=== PATIENT | male | born 1965 | race Caucasian/White ===

== ENCOUNTER 2021-10-21 21:03 | Emergency (ER) | payer MEDICARE, OTHER ==
[2021-10-21] MEDS ORDERED: Zofran 4 MG/2 ML VIAL IV ONE (21:36)
[2021-10-21] MEDS ORDERED: Sodium Chloride 0.9% 1000 ML 1,000 ML IV STA (21:36)
[2021-10-21] MEDS ORDERED: Protonix 40MG Tablet PO ONE (21:36)
[2021-10-21] MEDS ORDERED: PROTONIX 40 MG IV IV ONE ×2 (21:41→21:44)
[2021-10-21] MEDS ORDERED: Zofran 4 MG/2 ML VIAL ONE (21:41)
[2021-10-21] MEDS ORDERED: Sodium Chloride 0.9% 1000 ML 1,000 ML ONE (21:41)
[2021-10-21] MEDS ORDERED: Hydromorphone 1 mg/ml Injection IV ONE (21:52)
[2021-10-21 22:08] LABS: Basophil (Absolute #) 0.03 x10^3/uL (0-0.4); Eosinophil % 0.5 % (0.00-5.0); Eosinophil (Absolute #) 0.04 x10^3/uL (0-0.5); Hematocrit 46.3 % (42-50); Lymphocyte (Absolute #) 1.75 x10^3/uL (1.0-4.6); Lymphocytes % 20.6 % (24.0-44.0); Mean Cell Volume 80.4 fL (78-100); Mean Corpuscular Hemoglobin 27.8 pg (26-32); Mean Corpuscular Hgb Concent. 34.6 g/dL (32-36); Monocyte (Absolute #) 0.55 x10^3/uL (0.0-1.3); Monocytes % 6.5 % (0.0-12.0); Neutrophil % 71.8 % (36.0-66.0); Platelet Count 226 x10^3/uL (150-450); Red Blood Count 5.76 x10^6/uL (4.1-5.6); Red Cell Distribution Width 12.4 % (11.5-14.0); White Blood Count 8.5 x10^3/uL (4.0-10.5)
[2021-10-21 22:28] LABS: ALBUMIN 3.8 g/dL (3.5-5.0); ALKALINE PHOSPHATASE 138 U/L (38-126); AMYLASE 52 U/L (30-110); ANION GAP 13.7 MEQ/L (5-15); BLOOD UREA NITROGEN 13 mg/dL (9-20); CHLORIDE 95 mmol/L (98-107); Carbon Dioxide 26 mmol/L (22-30); Creatinine 1 0.57 mg/dL (0.66-1.25); EST GLOMERULAR FILTRATION RATE > 60.0 ML/MIN; Glucose 372 mg/dL (74-106); LIPASE 32 U/L (23-300); SGOT/AST 21 U/L (17-59); SGPT/ALT 26 U/L (0-50); SODIUM 130 mmol/L (137-145)
[2021-10-21 22:29] LABS: INR 1.03 (0.8-3.0); PROTIME 10.9 SECONDS (9.4-12.5)
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
[2021-10-21 22:56] LABS: INFLUENZA A NEGATIVE (NEGATIVE); INFLUENZA B NEGATIVE (NEGATIVE); RESPIRATORY SYNCTIAL VIRUS NEGATIVE (Negative); SARS-CoV-2 Xpert Express NEGATIVE (NEGATIVE)
[2021-10-21] MEDS ORDERED: Hydromorphone 1 mg/ml Injection ONE (23:27)
[2021-10-21 23:30] LABS: Appearance CLEAR (CLEAR)
[2021-10-21 23:32] LABS: Bilirubin NEGATIVE (NEGATIVE); Dipstick done @ ? MAIN LAB; Glucose >=1000 mg/dL (NEGATIVE); Ketones SMALL-15 (NEGATIVE); Nitrite NEGATIVE (NEGATIVE); Ph 5.5 (5-6); Protein,Urine Dip >=300 (Negative); RBC TRACE-LYSED Ery/ul (0-5); Urobilinogen 0.2 mg/dL (0-1)
[2021-10-21 23:37] LABS: Mucus SLIGHT /HPF (NEGATIVE); Urine Cultured Indicated? NO
[2021-10-21 23:51] LABS: Barbiturate,Urine NEGATIVE (NEGATIVE); Benzodiazepine,Urine NEGATIVE (NEGATIVE); Cocaine,Urine NEGATIVE (NEGATIVE); Methadone,Urine NEGATIVE (NEGATIVE); Opiate,Urine NEGATIVE (NEGATIVE); PCP,Urine NEGATIVE (NEGATIVE); THC,Urine NEGATIVE (NEGATIVE)
[2021-10-22] MEDS ORDERED: HUMULIN R IV ONE (00:05)
[2021-10-22 00:17] LABS: Amphetamine,Urine POSITIVE (NEGATIVE)
[2021-10-22 00:54] LABS: ACETAMINOPHEN < 10 ug/ml (10-30); ETHYL ALCOHOL < 10 mg/dL (0-10); SALICYLATE < 1.0 mg/dL (2-20)
[2021-10-22] MEDS ORDERED: HUMULIN R ONE (01:05)
[2021-10-22] MEDS ORDERED: CLONIDINE 0.1 MG TABLET PO ONE ×2 (01:34→05:06)
[2021-10-22] MEDS ORDERED: CLONIDINE 0.1 MG TABLET ONE ×2 (01:41→05:11)
[2021-10-22] MEDS ORDERED: NORVASC 5 MG PO ONE (05:06)
[2021-10-22] MEDS ORDERED: NORVASC 5 MG ONE (05:11)
--- NOTE | 2021-10-22 07:40 | XRAY ---
Indication: Confusion. Left-sided migraine headache. Multiple contiguous axial images obtained through the head without contrast. Comparison: None Age-appropriate global atrophy, moderate periventricular degenerative micro-ischemia bilaterally, subcentimeter foci old infarct rights right periventricular white matter, and remote lacunar infarcts right basal ganglia/right caudate head. No acute intracranial hemorrhage, abnormal extra-axial fluid collection, or mass effect. Fourth ventricle is midline without hydrocephalus. Bony calvarium intact. Visualized paranasal sinuses and mastoid air cells are clear. A few incidental left facial subcutaneous metallic densities presumed iatrogenic. 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 Comment: Preliminary interpretation made by [facility]. No critical discrepancy.
--- NOTE | 2021-10-22 07:42 | XRAY ---
Indication: Pain, nausea, and vomiting. Multiple contiguous axial images obtained through the abdomen and pelvis without contrast. Comparison: None Lung bases are clear. Heart not enlarged. Small hiatal hernia. Previous gastric bypass surgery. Noncontrasted stomach and bowel loops appear nonobstructed with normal appendix. Mild diffuse scattered colonic fecal debris throughout. Previous cholecystectomy. No free fluid/air. Incidental 2.5 cm right adrenal adenoma. Remaining liver, pancreas, spleen, adrenal glands, kidneys, ureters, and bladder are unremarkable for noncontrast exam. Mild scattered aortoiliac calcifications without AAA. Osseous structures intact with mild/moderate degenerative changes throughout the thoracolumbar spine and both hips. No ventral or inguinal hernias. Impression: 1. Mild diffuse fecal stasis, small hiatal hernia, and right adrenal adenoma. 2. Remaining CT abdomen/pelvis without contrast exam is negative. Comment: Preliminary interpretation made by [facility]. No critical discrepancy.
--- NOTE | 2021-10-22 07:44 | XRAY ---
Indication: Pain and confusion. No known injury. Comparison: None 5 view cervical spine demonstrates normal alignment with minimal/mild multilevel degenerative changes greatest at C5-C6 with bilateral C4-C6 foraminal narrowing due to uncovertebral spurring. Mild right carotid calcifications. Patient is edentulous. No other bony, articular, or soft tissue abnormalities.
--- NOTE | 2021-10-22 07:44 | XRAY ---
Indication: Pain, nausea, and vomiting. Comparison: None Portable chest demonstrates normal heart and lungs with incidental mediastinal/hilar calcified nodes. Bony thorax intact with mild degenerative changes.
[2021-10-22] MEDS ORDERED: Hydromorphone 1 mg/ml Injection IV ONE (08:43)
[2021-10-22] MEDS ORDERED: Hydromorphone 1 mg/ml Injection ONE (08:47)
[2021-10-22 09:09] VITALS: BP 141/73; PULSE 97; O2SAT 99
== END 2021-10-22 09:42 | disposition short-term general hospital (02) ==
LOC: ED 21:03
DX: G93.40 Encephalopathy, unspecified (principal); E11.65 Type 2 diabetes mellitus with hyperglycemia; R51.9 Headache, unspecified; R11.2 Nausea with vomiting, unspecified; R19.7 Diarrhea, unspecified; R10.84 Generalized abdominal pain; I10 Essential (primary) hypertension; Z72.0 Tobacco use; Z28.310 Unvaccinated for COVID-19; Z91.14 Patient's other noncompliance with medication regimen; Z20.828 Contact with and (suspected) exposure to other viral communicable diseases
CPT/HCPCS: 0241U; 36000; 36415; 70450; 71045; 72050; 74176; 80053; 80307; 81015; 82150; 82947; 83605; 83690; 84484; 85025; 85610; 85652; 87040; 93005; 96360; 96374; 96375; 96376; 99285; G0480; J1170; J1815; J2405; A9270-GY

== ENCOUNTER 2022-08-27 14:47 | Emergency (ER) | payer OTHER, MEDICARE ==
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
--- NOTE | 2022-08-27 16:55 | XRAY ---
CLINICAL HISTORY:fall, left side pain COMPARISON:None; TECHNIQUES:Multiple axial sections of CT of the pelvis were acquired without IV contrast administration. In addition, coronal and sagittal views were also acquired. CTDI: 23.38 mGy, DLP: 682.44 mGy*; FINDINGS: No acute fracture or listhesis is seen. Lumbar spondylosis is seen in the form of osteophytes, vacuum disc phenomenon and facet joint hypertrophy. Disc herniation is seen at the L4-L5 and L5-S1 levels indenting the thecal sac. Bilateral hip osteoarthritic changes are seen in the form of joint space reduction, osteophytes and a few tiny subcortical cysts in the bilateral acetabular margins. The osteophytes along the right anterior and bilateral posterior acetabular margins are broken. Uncomplicated descending colon diverticulosis is seen. The sacrum and coccyx are normal. Coccygeal alignment is normal. The prostate appears enlarged, to be correlated with an ultrasound of the bladder and prostate. IMPRESSION: 1-No acute fracture or listhesis is seen. 2-Lumbar spondylosis. 3-Disc herniation at the L4-L5 and L5-S1 levels. 4-Bilateral hip osteoarthritic changes. 5-Uncomplicated descending colon diverticulosis. 6-The prostate appears enlarged, to be correlated with an ultrasound of the bladder and prostate. Electronically Signed by: Marie Watts MD. (08/27/2022 15:47:22 [employer])
[2022-08-27] MEDS ORDERED: Rocephin 1000 MG INJ IM ONE (17:07)
[2022-08-27] MEDS ORDERED: NORCO 7.5/325 MG TAB PO PRN (17:08)
[2022-08-27] MEDS ORDERED: Rocephin 1000 MG INJ ONE (17:28)
[2022-08-27] MEDS ORDERED: XYLOCAINE 1% HCL 20 ML MDV ONE (17:28)
[2022-08-27 17:49] VITALS: BP 158/97; PULSE 96
[2022-08-27 17:50] VITALS: O2SAT 96
[2022-08-27] MEDS ORDERED: HYDROCODONE-ACETAMIN 10-325 MG PO PRN (17:56)
== END 2022-08-27 18:09 | disposition home or self-care (01) ==
LOC: ED 14:47
DX: S70.02XA Contusion of left hip, initial encounter (principal); W19.XXXA Unspecified fall, initial encounter; L03.032 Cellulitis of left toe; I10 Essential (primary) hypertension; E11.9 Type 2 diabetes mellitus without complications; Z79.899 Other long term (current) drug therapy; Z28.310 Unvaccinated for COVID-19; Z72.0 Tobacco use
CPT/HCPCS: 72192; 82947; 96372; 99283; J0696; A9270-GY

== ENCOUNTER 2022-10-04 22:34 | Inpatient (IN) | payer OTHER, MEDICARE ==
[2022-10-04] MEDS ORDERED: Sodium Chloride 0.9% 1000 ML 1,000 ML IV STA (23:03)
[2022-10-04] MEDS ORDERED: PIPERACILLIN/TAZOBACTAM 3.375 GM in Sodium Chloride 100ML MINI-BAG PLUS 100 ML IV ONE (23:04)
[2022-10-04] MEDS ORDERED: VANCOMYCIN 2 GRAM/400 ML BAG 2 GM/400 ML PIGGYBACK IV ONE ×2 (23:05→23:46)
[2022-10-04] MEDS ORDERED: Sodium Chloride 0.9% 1000 ML 1,000 ML ONE (23:32)
[2022-10-04] MEDS ORDERED: PIPERACILLIN/TAZOBACTAM IV ONE (23:32)
[2022-10-04] MEDS ORDERED: Sodium Chloride 100ML MINI-BAG PLUS 100 ML IV ONE (23:33)
[2022-10-04 23:39] LABS: Absolute Neutrophil Ct (ANC) 5.13 x10^3/uL (1.4-6.9); BASOPHIL % 0.5 % (0.0-0.4); Basophil (Absolute #) 0.04 x10^3/uL (0-0.4); Eosinophil % 1.4 % (0.00-5.0); Eosinophil (Absolute #) 0.11 x10^3/uL (0-0.5); Hematocrit 42.4 % (42-50); Hemoglobin 14.1 g/dL (12.5-18.0); IMMATURE GRAN # 0.04 x10^3u/L (0.00-0.03); IMMATURE GRAN % 0.5 % (0.00-0.4); Lymphocyte (Absolute #) 1.97 x10^3/uL (1.0-4.6); Lymphocytes % 25.4 % (24.0-44.0); Mean Cell Volume 79.7 fL (78-100); Mean Corpuscular Hemoglobin 26.5 pg (26-32); Mean Corpuscular Hgb Concent. 33.3 g/dL (32-36); Mean Platelet Volume 10.1 fL (7.5-11.0); Monocyte (Absolute #) 0.47 x10^3/uL (0.0-1.3); Monocytes % 6.1 % (0.0-12.0); Neutrophil % 66.1 % (36.0-66.0); Platelet Count 252 x10^3/uL (150-450); Red Blood Count 5.32 x10^6/uL (4.1-5.6); Red Cell Distribution Width 13.2 % (11.5-14.0); White Blood Count 7.8 x10^3/uL (4.0-10.5)
[2022-10-04 23:52] LABS: ALKALINE PHOSPHATASE 220 U/L (38-126); ANION GAP 11.5 MEQ/L (5-15); BLOOD UREA NITROGEN 22 mg/dL (9-20); CHLORIDE 95 mmol/L (98-107); Calcium 8.4 mg/dL (8.4-10.2); Carbon Dioxide 28 mmol/L (22-30); Creatinine 1 0.52 mg/dL (0.66-1.25); EST GLOMERULAR FILTRATION RATE > 60.0 ML/MIN; Potassium 4.3 mmol/L (3.5-5.1); SGOT/AST 25 U/L (17-59); SGPT/ALT 30 U/L (0-50); SODIUM 131 mmol/L (137-145); Total Protein 6.6 g/dL (6.3-8.2)
[2022-10-04 23:59] LABS: Glucose 559 mg/dL (74-106)
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
[2022-10-05 00:33] LABS: VBG BASE EXCESS 4.2 (-2.0-2.0); VBG HCO3- 28.4 meq/L (22-28); VBG HEMOGLOBIN 14.8; VBG O2 SATURATION 98.1 (95-100); VBG POTASSIUM 4.5 (3.5-5.1); VBG pH 7.46 (7.32-7.42)
[2022-10-05 00:34] LABS: VBG CARBOXYHEMOGLOBIN 9.6 % T HGB (0.0-6.9)
[2022-10-05] MEDS ORDERED: TRANDATE 20 MG/4 ML SYRINGE IV ONE ×2 (00:40→00:52)
[2022-10-05] MEDS ORDERED: MORPHINE SULFATE 4 MG INJ IV ONE (00:46)
[2022-10-05] MEDS ORDERED: HUMULIN R IV ONE (00:46)
[2022-10-05] MEDS ORDERED: Zofran 4 MG/2 ML VIAL IV ONE (00:46)
[2022-10-05] MEDS ORDERED: Zofran 4 MG/2 ML VIAL ONE (00:50)
[2022-10-05] MEDS ORDERED: HUMULIN R ONE (00:51)
[2022-10-05] MEDS ORDERED: MORPHINE SULFATE 4 MG INJ ONE (00:51)
[2022-10-05] MEDS: Sodium Chloride 0.9% 1000 ML 1,000 ML IV SCH ×4 (00:54→23:03)
[2022-10-05] MEDS ORDERED: DUONEB 0.5-3 MG/3 ml Neb IH PRN (02:27)
[2022-10-05] MEDS ORDERED: VANCOCIN INJECTION*** 1 GM in Sodium Chloride 0.9% 250 ML 250 ML IV SCH (02:27)
[2022-10-05] MEDS ORDERED: Zofran 4 MG/2 ML VIAL IV PRN (02:27)
[2022-10-05 04:51] LABS: Absolute Neutrophil Ct (ANC) 4.32 x10^3/uL (1.4-6.9); BASOPHIL % 0.4 % (0.0-0.4); Basophil (Absolute #) 0.03 x10^3/uL (0-0.4); Eosinophil % 1.9 % (0.00-5.0); Eosinophil (Absolute #) 0.14 x10^3/uL (0-0.5); Hematocrit 38.3 % (42-50); Hemoglobin 12.7 g/dL (12.5-18.0); IMMATURE GRAN # 0.03 x10^3u/L (0.00-0.03); IMMATURE GRAN % 0.4 % (0.00-0.4); Lymphocyte (Absolute #) 2.15 x10^3/uL (1.0-4.6); Lymphocytes % 29.9 % (24.0-44.0); Mean Cell Volume 79.1 fL (78-100); Mean Corpuscular Hemoglobin 26.2 pg (26-32); Mean Corpuscular Hgb Concent. 33.2 g/dL (32-36); Monocyte (Absolute #) 0.52 x10^3/uL (0.0-1.3); Monocytes % 7.2 % (0.0-12.0); Neutrophil % 60.2 % (36.0-66.0); Platelet Count 237 x10^3/uL (150-450); Red Blood Count 4.84 x10^6/uL (4.1-5.6); Red Cell Distribution Width 13.2 % (11.5-14.0); White Blood Count 7.2 x10^3/uL (4.0-10.5)
[2022-10-05 05:06] LABS: ALBUMIN 2.5 g/dL (3.5-5.0); ALKALINE PHOSPHATASE 194 U/L (38-126); ANION GAP 6.6 MEQ/L (5-15); BLOOD UREA NITROGEN 18 mg/dL (9-20); CHLORIDE 101 mmol/L (98-107); Calcium 7.9 mg/dL (8.4-10.2); Carbon Dioxide 31 mmol/L (22-30); EST GLOMERULAR FILTRATION RATE > 60.0 ML/MIN; Glucose 276 mg/dL (74-106); Potassium 3.8 mmol/L (3.5-5.1); SGOT/AST 44 U/L (17-59); SGPT/ALT 30 U/L (0-50); SODIUM 135 mmol/L (137-145); Total Protein 5.6 g/dL (6.3-8.2)
[2022-10-05] MEDS ORDERED: Sodium Chloride 100ML MINI-BAG PLUS 100 ML IV ONE (05:10)
[2022-10-05] MEDS ORDERED: PIPERACILLIN/TAZOBACTAM IV ONE (05:10)
[2022-10-05] MEDS: PIPERACILLIN/TAZOBACTAM 3.375 GM in Sodium Chloride 100ML MINI-BAG PLUS 100 ML IV SCH ×4 (06:05→23:02)
[2022-10-05 08:41] LABS: ALKALINE PHOSPHATASE 180 U/L (38-126); CK-Creatinine Phosphokinase 59 U/L (55-170)
[2022-10-05] MEDS: VANCOMYCIN 1.5 GRAM/300 ML BAG 1.5 GM/300 ML PIGGYBACK IV SCH ×3 (09:01→23:03)
[2022-10-05] MEDS: PROTONIX 40 MG IV IV SCH (09:05)
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
[2022-10-05] MEDS: MORPHINE SULFATE 4 MG INJ IV PRN ×4 (09:12→23:02)
[2022-10-05] MEDS ORDERED: Cozaar 50 MG PO SCH (10:00)
[2022-10-05] MEDS ORDERED: Xylocaine 1% Vial 30 ML PF IJ ONE (10:46)
[2022-10-05] MEDS ORDERED: Marcaine Mpf 0.5% Vial 30 Ml ONE (10:46)
[2022-10-05] MEDS: NORVASC 5 MG PO SCH (12:55)
[2022-10-05] MEDS: LASIX 20 MG PO SCH (12:55)
[2022-10-05] MEDS: Klor Con PO SCH (12:56)
[2022-10-05] MEDS: Lexapro PO SCH (12:56)
[2022-10-05] MEDS: Lantus Insulin SQ SCH (12:57)
[2022-10-05] MEDS: HUMALOG SQ PRN ×2 (12:57→16:43)
[2022-10-05] MEDS: JARDIANCE PO SCH (13:07)
--- NOTE | 2022-10-05 17:31 | XRAY ---
Indication: Osteomyelitis. Two-dimensional sonogram and color Doppler imaging of the major arteries of the left and right leg performed. Comparison: None Examination of the right leg demonstrates widely patent, small, deep femoral, superficial femoral, and popliteal arteries. Minimal arteriosclerotic disease in the remaining posterior tibial and dorsal pedal arteries without critical stenosis/obstruction. Arterial waveforms are monophasic in the popliteal, posterior tibial, dorsal pedal arteries with remaining right leg arterial waveforms multiphasic. Examination of the left leg demonstrates widely patent common femoral, deep femoral, superficial femoral, popliteal, and dorsal pedal arteries. Posterior tibial artery demonstrates mild scattered arteriosclerotic disease without critical stenosis/obstruction. Arterial waveforms are monophasic in the dorsal pedal artery with remaining left leg arterial waveforms multiphasic. Impression: Minimal/mild arteriosclerotic disease in both lower legs without critical stenosis/obstruction.
--- NOTE | 2022-10-05 17:31 | XRAY ---
CLINICAL HISTORY:abscess, r/o gas gangrene COMPARISON:None; TECHNIQUES:X-ray examination of the left foot is performed in AP, lateral and oblique 3 views; FINDINGS: Fracture/erosion at the distal phalanx of the 2nd toe along with marked soft tissue swelling however no definite gas shadow is seen in this adjacent soft tissue swelling. Minimal marginal osteophytes were seen at multiple joints of the left foot with the possibility of subchondral cysts at the first metatarsophalangeal joint suggestive of osteoarthritic changes. Plantar and retrocalcaneal large spurs are seen. Diffuse soft tissue swelling is also noted on the left foot. IMPRESSION: 1-Fracture/erosion at the distal phalanx of the 2nd toe along with marked soft tissue swelling however no definite gas shadow is seen in this soft tissue swelling. 2-Mild osteoarthritic changes at multiple joints. 3-Calcaneal spurs. DISCLAIMER: A subtle bone abnormality or fracture may not be readily apparent on X-rays, thus clinical correlation and further imaging including follow-up CT, MRI, or follow-up X-rays are advised as needed. [facility] was called at [phone] at 11:14 PM AUTO WASHER, 10/04/2022 and results were verbally communicated to Dr. Bradshaw. Electronically Signed by: Marie Watts MD. (10/04/2022 23:16:54 AUTO WASHER)
--- NOTE | 2022-10-05 17:31 | XRAY ---
Indication: Osteomyelitis. Bilateral ankle brachial index exam performed. Comparison: None Right arm brachial pressure is 172. Right ankle pressure could not be occluded to obtain pressure reading. Left arm brachial pressure is 172. Left ankle pressure could not be occluded to obtain pressure reading. Impression: MARLEY could not be calculated as both ankle pressure readings could not be obtained.
--- NOTE | 2022-10-05 17:32 | XRAY ---
Indication: FPC placement. Comparison: October 21, 2021 Portable apical lordotic chest again demonstrates normal heart and lungs with a few incidental hilar calcified nodes. Bony thorax intact with mild degenerative changes. Impression: Continued nonacute chest with chronic features.
[2022-10-06] MEDS: MORPHINE SULFATE 4 MG INJ IV PRN ×4 (03:47→21:55)
[2022-10-06] MEDS: PIPERACILLIN/TAZOBACTAM 3.375 GM in Sodium Chloride 100ML MINI-BAG PLUS 100 ML IV SCH ×3 (05:19→19:31)
[2022-10-06 07:27] LABS: BASOPHIL % 0.5 % (0.0-0.4); Basophil (Absolute #) 0.04 x10^3/uL (0-0.4); Eosinophil % 2.3 % (0.00-5.0); Eosinophil (Absolute #) 0.18 x10^3/uL (0-0.5); Hematocrit 39.7 % (42-50); Hemoglobin 12.7 g/dL (12.5-18.0); IMMATURE GRAN # 0.04 x10^3u/L (0.00-0.03); IMMATURE GRAN % 0.5 % (0.00-0.4); Lymphocyte (Absolute #) 1.97 x10^3/uL (1.0-4.6); Lymphocytes % 25.3 % (24.0-44.0); Mean Cell Volume 81.9 fL (78-100); Mean Corpuscular Hemoglobin 26.2 pg (26-32); Mean Platelet Volume 9.2 fL (7.5-11.0); Monocyte (Absolute #) 0.56 x10^3/uL (0.0-1.3); Monocytes % 7.2 % (0.0-12.0); Neutrophil % 64.2 % (36.0-66.0); Platelet Count 245 x10^3/uL (150-450); Red Blood Count 4.85 x10^6/uL (4.1-5.6); Red Cell Distribution Width 13.5 % (11.5-14.0); White Blood Count 7.8 x10^3/uL (4.0-10.5)
[2022-10-06] MEDS ORDERED: TROUGH DRUG LEVELS IJ ONE (07:30)
[2022-10-06 08:42] LABS: ALBUMIN 2.6 g/dL (3.5-5.0); ALKALINE PHOSPHATASE 504 U/L (38-126); ANION GAP 7.6 MEQ/L (5-15); BLOOD UREA NITROGEN 14 mg/dL (9-20); CHLORIDE 101 mmol/L (98-107); Carbon Dioxide 32 mmol/L (22-30); Creatinine 1 0.83 mg/dL (0.66-1.25); EST GLOMERULAR FILTRATION RATE > 60.0 ML/MIN; Glucose 112 mg/dL (74-106); MAGNESIUM 1.6 mg/dL (1.6-2.3); SGOT/AST 170 U/L (17-59); SGPT/ALT 142 U/L (0-50); SODIUM 136 mmol/L (137-145); Total Protein 5.9 g/dL (6.3-8.2)
--- NOTE | 2022-10-06 08:54 | PCM.NOTE ---
Date and Time: 10/06/22 0848 Subjective Assessment: patient having some post-op pain as expected, no other complaints. tolerating po intake Objective Exam General Appearance: no apparent distress Neurologic Exam: alert, oriented x 3 Wound Assessment: Skin/Wound Assessment Wound/Incision Assessment Start: 10/05/22 03:25 Text: Status: Active Freq: Q12H Protocol: Document 10/05/22 20:00 LB (Rec: 10/05/22 20:32 LB [id number]) Wound/Incision Assessment Right Foot Wound Assessment Shift Assessment Wound Stage Unstageable Drainage Amount None General Appearance Blackened Length (cm) (cm) 1.2 Width (cm) (cm) 1.0 Wound Bed Greatest Portion Black (Eschar) rt third toe Wound Assessment Shift Assessment Wound Stage Unstageable Drainage Amount None General Appearance Blackened Length (cm) (cm) 1.0 Width (cm) (cm) 1.0 Wound Bed Greatest Portion Black (Eschar) Left Thigh Wound Assessment Shift Assessment Drainage Amount None Length (cm) (cm) 0.8 Width (cm) (cm) 0.7 Wound Bed Greatest Portion Black (Eschar) fourth toe Wound Assessment Shift Assessment Wound Stage Unstageable General Appearance Blackened Length (cm) (cm) 0.3 Width (cm) (cm) 0.3 Wound Bed Greatest Portion Black (Eschar) third toe Wound Assessment Shift Assessment Wound Stage Unstageable Dressing Status Dry & Intact Drainage Amount None left second toe Wound Assessment Shift Assessment Wound Stage Unstageable General Appearance Blackened,Necrotic Wound Bed Greatest Portion Dusky Red,Blanched/Dull,Yellow (Slough),Black (Eschar) Surrounding Tissue Edematous Comment entire second toe Left Toe Wound Assessment Shift Assessment Wound Stage Unstageable Drainage Odor Foul Odor General Appearance Reddened,Blackened Length (cm) (cm) 1.7 Width (cm) (cm) 1.5 Wound Bed Greatest Portion Dusky Red,Yellow (Slough), Black (Eschar) Surrounding Tissue Dark Red,Edematous-pitting Comment great toe Wound Photo Photo Taken Yes Comment: SEE PICTURES IN CHART Respiratory Exam: normal breath sounds, lungs clear, No respiratory distress Cardiovascular Exam: regular rate/rhythm, normal heart sounds Gastrointestinal/Abdomen Exam: soft, No tenderness, No mass Extremity Exam: other (dressing to left foot, left intact. see podiatry notes regarding wound) OBJECTIVE DATA Vital Signs: Vital Signs - 24 hr Temp Pulse Resp BP Pulse Ox 10/06/22 07:21 97.7 F 90 18 161/84 93 L 10/06/22 04:00 97.6 F 88 18 153/94 95 10/05/22 23:45 98.9 F 93 H 19 157/93 94 L 10/05/22 20:00 97.5 F 90 18 140/92 96 10/05/22 16:00 97.5 F 85 18 157/89 97 10/05/22 12:35 97.5 F 89 18 169/98 95 10/05/22 11:46 97.3 F 89 18 176/97 97 10/05/22 11:25 97.5 F 98 H 17 161/77 95 Pain Assessment - Last Documented Pain Intensity 3 Pain Scale Used 0-10 Pain Scale Intake and Output: Intake & Output 10/03/22 10/04/22 10/05/22 10/06/22 11:59 11:59 11:59 11:59 Intake Total 0 4419 Output Total 450 1800 Balance -450 2619 Weight 98.9 kg Lab Results: Lab Results-Last 24 Hours 10/05/22 10/05/22 10/05/22 Range/Units 08:27 08:27 11:27 WBC (4.0-10.5) x10^3/uL RBC (4.1-5.6) x10^6/uL Hgb (12.5-18.0) g/dL Hct (42-50) % MCV (78-100) fL MCH (26-32) pg MCHC (32-36) g/dL RDW (11.5-14.0) % Plt Count (150-450) x10^3/uL MPV (7.5-11.0) fL Gran % (36.0-66.0) % Immature Gran % (Auto) (0.00-0.4) % Nucleat RBC Rel Count (0.00-0.1) % Eos # (Auto) (0-0.5) x10^3/uL Immature Gran # (Auto) (0.00-0.03) x10^3u/L Absolute Lymphs (auto) (1.0-4.6) x10^3/uL Absolute Monos (auto) (0.0-1.3) x10^3/uL Absolute Nucleated RBC (0.00-0.01) x10^3u/L Lymphocytes % (24.0-44.0) % Monocytes % (0.0-12.0) % Eosinophils % (0.00-5.0) % Basophils % (0.0-0.4) % Absolute Granulocytes (1.4-6.9) x10^3/uL Basophils # (0-0.4) x10^3/uL POC Glucometer 160 H (74 to 106) mg/dL Hemoglobin A1c > 14.00 H (4.5-6.0) % Alkaline Phosphatase 180 H (38-126) U/L Creatine Kinase 59 (55-170) U/L 10/05/22 10/05/22 10/06/22 Range/Units 16:29 20:52 07:06 WBC (4.0-10.5) x10^3/uL RBC (4.1-5.6) x10^6/uL Hgb (12.5-18.0) g/dL Hct (42-50) % MCV (78-100) fL MCH (26-32) pg MCHC (32-36) g/dL RDW (11.5-14.0) % Plt Count (150-450) x10^3/uL MPV (7.5-11.0) fL Gran % (36.0-66.0) % Immature Gran % (Auto) (0.00-0.4) % Nucleat RBC Rel Count (0.00-0.1) % Eos # (Auto) (0-0.5) x10^3/uL Immature Gran # (Auto) (0.00-0.03) x10^3u/L Absolute Lymphs (auto) (1.0-4.6) x10^3/uL Absolute Monos (auto) (0.0-1.3) x10^3/uL Absolute Nucleated RBC (0.00-0.01) x10^3u/L Lymphocytes % (24.0-44.0) % Monocytes % (0.0-12.0) % Eosinophils % (0.00-5.0) % Basophils % (0.0-0.4) % Absolute Granulocytes (1.4-6.9) x10^3/uL Basophils # (0-0.4) x10^3/uL POC Glucometer 158 H 149 H 128 H (74 to 106) mg/dL Hemoglobin A1c (4.5-6.0) % Alkaline Phosphatase (38-126) U/L Creatine Kinase (55-170) U/L 10/06/22 Range/Units 07:20 WBC 7.8 (4.0-10.5) x10^3/uL RBC 4.85 (4.1-5.6) x10^6/uL Hgb 12.7 (12.5-18.0) g/dL Hct 39.7 L (42-50) % MCV 81.9 (78-100) fL MCH 26.2 (26-32) pg MCHC 32.0 (32-36) g/dL RDW 13.5 (11.5-14.0) % Plt Count 245 (150-450) x10^3/uL MPV 9.2 (7.5-11.0) fL Gran % 64.2 (36.0-66.0) % Immature Gran % (Auto) 0.5 H (0.00-0.4) % Nucleat RBC Rel Count 0.0 (0.00-0.1) % Eos # (Auto) 0.18 (0-0.5) x10^3/uL Immature Gran # (Auto) 0.04 H (0.00-0.03) x10^3u/L Absolute Lymphs (auto) 1.97 (1.0-4.6) x10^3/uL Absolute Monos (auto) 0.56 (0.0-1.3) x10^3/uL Absolute Nucleated RBC 0.00 (0.00-0.01) x10^3u/L Lymphocytes % 25.3 (24.0-44.0) % Monocytes % 7.2 (0.0-12.0) % Eosinophils % 2.3 (0.00-5.0) % Basophils % 0.5 (0.0-0.4) % Absolute Granulocytes 5.00 (1.4-6.9) x10^3/uL Basophils # 0.04 (0-0.4) x10^3/uL POC Glucometer (74 to 106) mg/dL Hemoglobin A1c (4.5-6.0) % Alkaline Phosphatase (38-126) U/L Creatine Kinase (55-170) U/L Radiology Exams: Radiology Procedures Category Date Time Status MARLEY/LIMB PRESSURES BILATERAL [US] Urgent Exams 10/05/22 07:54 Completed ARTERIAL BILAT LOWER EXTREMITY [US] Urgent Exams 10/05/22 07:54 Completed CHEST 1 VIEW (PORTABLE) Urgent Exams 10/05/22 14:52 Completed FOOT (MINIMUM 3 VIEWS) Stat Exams 10/04/22 23:05 Completed Multi-Disciplinary Progress Notes: Multi-Disciplinary Progress Notes 10/05/22 14:58 Case Management Note by Zaria Ge S/W [facility] REGARDING POSSIBLE PICC LINE. HE REPORTS PATIENT HAS A HEROIN ISSUE. HE WOULD LIKE TO WAIT UNTIL PATIENT HAS PLACEMENT ESTABLISHED AT A SNF BEFORE PROCEEDING WITH PICC PLACEMENT Initialized on 10/05/22 14:58 - END OF NOTE 10/05/22 14:54 Case Management Note by Zaria Ge REFERRAL FAXED TO [facility] Initialized on 10/05/22 14:54 - END OF NOTE Assessment/Plan (1) Diabetic foot infection Current Visit: Yes Status: Acute Assessment & Plan: cultures pending from debridement/amputation yesterday. continue vanc/zosyn at this time. Code(s): E11.628 - TYPE 2 DIABETES MELLITUS WITH OTHER SKIN COMPLICATIONS; L08.9 - LOCAL INFECTION OF THE SKIN AND SUBCUTANEOUS TISSUE, UNSP (2) Cardiomyopathy Current Visit: Yes Status: Acute Assessment & Plan: d/c fluids, taking adequate po and EF 25-30% Code(s): I42.9 - CARDIOMYOPATHY, UNSPECIFIED (3) Type 2 diabetes, uncontrolled, with cellulitis of foot Current Visit: Yes Status: Acute Assessment & Plan: A1C >14% on arrival, blood sugar 128 this am, currently exhibiting good control with current regimen. I highly suspect noncompliance with this level of a1c elevation Code(s): FKC9416 - (4) Uncontrolled hypertension Current Visit: Yes Status: Acute Assessment & Plan: increase losartan dose this am, bp mildly elevated. Code(s): I10 - ESSENTIAL (PRIMARY) HYPERTENSION
[2022-10-06] MEDS: VANCOMYCIN 1.5 GRAM/300 ML BAG 1.5 GM/300 ML PIGGYBACK IV SCH ×2 (09:13→16:01)
[2022-10-06] MEDS: Cozaar 50 MG PO SCH (09:17)
[2022-10-06] MEDS: NORVASC 5 MG PO SCH (09:17)
[2022-10-06] MEDS: Lexapro PO SCH (09:17)
[2022-10-06] MEDS: Lantus Insulin SQ SCH (09:17)
[2022-10-06] MEDS: LASIX 20 MG PO SCH (09:17)
[2022-10-06] MEDS: Klor Con PO SCH (09:17)
[2022-10-06] MEDS: ZOCOR 20MG PO SCH (09:17)
[2022-10-06] MEDS: JARDIANCE PO SCH (09:18)
[2022-10-06] MEDS: PROTONIX 40 MG IV IV SCH (09:19)
--- NOTE | 2022-10-06 09:35 | OP ---
SURGERY DATE: 10/05/2022 SURGERY TIME: 1136 PREOPERATIVE DIAGNOSIS: 1. OSTEOMYELITIS IN LEFT 2ND AND 3RD TOE. 2. ABSCESS LEFT FOOT. 3. DIABETES MELLITUS WITH DIABETIC FOOT WOUND. 4. DIABETIC PERIPHERAL NEUROPATHY. 5. SEVERELY UNCONTROLLED DIABETES MELLITUS. 6. INTRAVENOUS DRUG USE. POSTOPERATIVE DIAGNOSIS: 1. OSTEOMYELITIS IN LEFT 2ND AND 3RD TOE. 2. ABSCESS LEFT FOOT. 3. DIABETES MELLITUS WITH DIABETIC FOOT WOUND. 4. DIABETIC PERIPHERAL NEUROPATHY. 5. SEVERELY UNCONTROLLED DIABETES MELLITUS. 6. INTRAVENOUS DRUG USE. PROCEDURE: 1. Incision and drainage with multiple planes, left foot. 2. Amputation of digits 2 and 3 left foot. SURGEON: Sergio Canchola D.P.M. RANCH SUPERVISOR: None. ANESTHESIA: Local. HEMOSTASIS: A pressure dressing. ESTIMATED BLOOD LOSS: Approximately 20 cc. MATERIALS: 2-0 Nylon, ' Iodoform packing. INJECTABLES: 30 cc of a 1:1 mixture of 1% Lidocaine plain and 0.5% Bupivicaine plain injected in a left ankle block type fashion. INDICATIONS FOR PROCEDURE: Reinaldo is a very pleasant 57 y/o male who presented to the Emergency Room last night for some concerns of a significant malodor to the distal tip of the 2nd and 3rd digits of the left foot. The Emergency Room physician called me indicating that there was significant purulent drainage along with significant malodor to the wound. The patient indicates that the wound was present for approximately 4-6 weeks prior to him presenting for intervention. The patient is experiencing significant malaise, lethargy as well as subjective fever. From that standpoint, the patient presented. He was assessed at the bedside this AM after a direct admission from the Emergency Room and found to have a positive peripheral bone. X-rays demonstrated significant osteomyelitic changes to the tips of the distal phalanx 2 and 3 and getting clinical picture, there is concern for some necrotizing fasciitis. Labs appeared to be within normal limits for most factors. However, ESR and CRP were significantly elevated. At this time, decision was made to perform incision and drainage through multiple planes in order to drain the abscess along with amputations of the digits 2 and 3. With this, we decided that if there was significant tracking of the wound through the dorsal midfoot, we would proceed with a transmetatarsal amputation. The patient did have what appeared to be a wound on the 4th digit of the right foot. We were planning to take care of this at the same time intraoperatively. However, this was found to be a significant callus on the tip of the 4th toe with no wound beneath it. The patient was consented. He understands all risks, complications, and benefits of surgical intervention including, but not limited to, infection; hematoma; seroma; possibility of delayed wound healing; non-wound healing; possible need for further surgical intervention at a later date; possible need for repeat intervention. This is the planned staged intervention. There is a possibility that following this, the patient will need more bone resected in order to get appropriate closure. The patient understands all this and wishes to proceed. DESCRIPTION OF PROCEDURE: The patient was brought into the OR. Placed on the OR table in the supine position. At this time, the left lower extremity and the right lower extremity were prepped and draped in the typical sterile fashion and lowered onto the surgical field. At this time, 30 cc of a 1:1 mixture of 1% Lidocaine plain and 0.5% Bupivicaine plain was injected in an ankle block type fashion. At this time, attention was directed to digits 2 and 3 of the left foot. An incision was made over the dorsal aspect of the 2nd digit where the entirety of the 2nd digit was necrotic with purulent drainage. This was excised and following suit, the 3rd digit was then excised. The soft tissue planes were then explored to the left foot demonstrating tracking to the dorsal aspect of the 2nd metatarsal. Small amount of purulence was explored through this area. However, the majority of which appeared to be localized to the base of the 2nd digit and the dorsal aspect of the 2nd metatarsal head. This was then cleansed with Bactisure with 1 liter of Bactisure and then 3 liters of sterile saline. Following this, a partial closure of the wound was performed utilizing 2-0 Nylon in a trauma suture type fashion partially closing the wound. 1/4" Iodoform packing was then packed into the open portion of the wound. A dressing consisting of Betadine, Adaptic, 4 X 4, ABD, Kerlix, and Fredis was then applied to the left foot with minimal to moderate compression. The patient was then returned to his room with vital signs stable and vascular status intact. The patient handled the anesthesia as well as the procedure without significant complication. Postoperative orders as indicated in the patient's inpatient chart.
[2022-10-06] MEDS ORDERED: NON-FORMULARY ITEM (Rosuvastatin Calcium [Rosuvastatin Calcium] 10 MG Tablet) PO SCH (10:00)
[2022-10-06] MEDS ORDERED: NON-FORMULARY ITEM (Potassium Chloride [Potassium Chloride] 10 MEQ Tablet.Er) PO SCH (10:00)
[2022-10-06] MEDS: HUMALOG SQ PRN ×3 (12:44→22:44)
[2022-10-06] MEDS ORDERED: VANCOCIN 500 MG VIAL*** 500 MG in Sodium Chloride 100ML MINI-BAG PLUS 100 ML IV ONE (17:00)
[2022-10-07] MEDS: PIPERACILLIN/TAZOBACTAM 3.375 GM in Sodium Chloride 100ML MINI-BAG PLUS 100 ML IV SCH ×4 (00:59→17:20)
[2022-10-07 06:00] LABS: Absolute Neutrophil Ct (ANC) 4.44 x10^3/uL (1.4-6.9); BASOPHIL % 0.7 % (0.0-0.4); Basophil (Absolute #) 0.05 x10^3/uL (0-0.4); Eosinophil % 3.4 % (0.00-5.0); Eosinophil (Absolute #) 0.25 x10^3/uL (0-0.5); Hematocrit 41.2 % (42-50); Hemoglobin 13.1 g/dL (12.5-18.0); IMMATURE GRAN # 0.03 x10^3u/L (0.00-0.03); IMMATURE GRAN % 0.4 % (0.00-0.4); Lymphocyte (Absolute #) 1.99 x10^3/uL (1.0-4.6); Lymphocytes % 26.9 % (24.0-44.0); Mean Cell Volume 81.1 fL (78-100); Mean Corpuscular Hemoglobin 25.8 pg (26-32); Mean Corpuscular Hgb Concent. 31.8 g/dL (32-36); Mean Platelet Volume 9.7 fL (7.5-11.0); Monocyte (Absolute #) 0.64 x10^3/uL (0.0-1.3); Monocytes % 8.6 % (0.0-12.0); Platelet Count 283 x10^3/uL (150-450); Red Blood Count 5.08 x10^6/uL (4.1-5.6); Red Cell Distribution Width 13.3 % (11.5-14.0); White Blood Count 7.4 x10^3/uL (4.0-10.5)
[2022-10-07 06:16] LABS: BLOOD UREA NITROGEN 14 mg/dL (9-20); CHLORIDE 101 mmol/L (98-107); Calcium 8.2 mg/dL (8.4-10.2); Carbon Dioxide 31 mmol/L (22-30); Creatinine 1 0.75 mg/dL (0.66-1.25); EST GLOMERULAR FILTRATION RATE > 60.0 ML/MIN; Glucose 144 mg/dL (74-106); Potassium 3.9 mmol/L (3.5-5.1); SODIUM 134 mmol/L (137-145)
[2022-10-07] MEDS: MORPHINE SULFATE 4 MG INJ IV PRN (08:03)
[2022-10-07] MEDS: VANCOMYCIN 2 GRAM/400 ML BAG 2 GM/400 ML PIGGYBACK IV SCH ×2 (08:11→18:38)
--- NOTE | 2022-10-07 08:28 | PCM.NOTE ---
Date and Time: 10/07/22822 Subjective Assessment: POD#2/ Lethargic. Complaints of pain. No other pedal complaints noted. Physical Exam - Neuro Neurologic: Epicritic and protopathic (absent) - Vascular Peripheral Pulses: Posterior tibialis: 2+, Dorsalis-Pedis: 2+ Capillary Refill Time: < 3 seconds Hair Growth: Symmetrical and Bilateral Edema: None Skin: Supple, not atrophic - Narrative Narrative Physical Exam: Podiatry Physical Exam OBJECTIVE DATA Vital Signs: Vital Signs - 24 hr Temp Pulse Resp BP Pulse Ox 10/07/22 08:00 97.5 F 85 19 171/95 95 10/07/22 04:00 97.1 F 91 H 18 147/79 95 10/06/22 23:36 97.3 F 85 20 145/81 95 10/06/22 19:52 98.0 F 86 20 153/78 96 10/06/22 16:00 97.1 F 86 18 147/82 93 L 10/06/22 11:49 97.7 F 92 H 18 143/85 94 L Pain Assessment - Last Documented Pain Intensity 9 Pain Scale Used 0-10 Pain Scale Intake and Output: Intake & Output 10/04/22 10/05/22 10/06/22 10/07/22 11:59 11:59 11:59 11:59 Intake Total 0 4419 3323 Output Total 450 2600 2500 Balance -450 1819 823 Weight 98.9 kg Lab Results: Lab Results-Last 24 Hours 10/06/22 10/06/22 10/06/22 Range/Units 07:20 07:20 11:33 WBC (4.0-10.5) x10^3/uL RBC (4.1-5.6) x10^6/uL Hgb (12.5-18.0) g/dL Hct (42-50) % MCV (78-100) fL MCH (26-32) pg MCHC (32-36) g/dL RDW (11.5-14.0) % Plt Count (150-450) x10^3/uL MPV (7.5-11.0) fL Gran % (36.0-66.0) % Immature Gran % (Auto) (0.00-0.4) % Nucleat RBC Rel Count (0.00-0.1) % Eos # (Auto) (0-0.5) x10^3/uL Immature Gran # (Auto) (0.00-0.03) x10^3u/L Absolute Lymphs (auto) (1.0-4.6) x10^3/uL Absolute Monos (auto) (0.0-1.3) x10^3/uL Absolute Nucleated RBC (0.00-0.01) x10^3u/L Lymphocytes % (24.0-44.0) % Monocytes % (0.0-12.0) % Eosinophils % (0.00-5.0) % Basophils % (0.0-0.4) % Absolute Granulocytes (1.4-6.9) x10^3/uL Basophils # (0-0.4) x10^3/uL Sodium 136 L (137-145) mmol/L Potassium 5.0 D (3.5-5.1) mmol/L Chloride 101 (98-107) mmol/L Carbon Dioxide 32 H (22-30) mmol/L Anion Gap 7.6 (5-15) MEQ/L BUN 14 (9-20) mg/dL Creatinine 0.83 (0.66-1.25) mg/dL Estimated GFR > 60.0 ML/MIN Glucose 112 H (74-106) mg/dL POC Glucometer 200 H (74 to 106) mg/dL Calcium 8.0 L (8.4-10.2) mg/dL Magnesium 1.6 (1.6-2.3) mg/dL Total Bilirubin 0.50 (0.2-1.3) mg/dL AST 170 H (17-59) U/L ALT 142 H (0-50) U/L Alkaline Phosphatase 504 H (38-126) U/L Serum Total Protein 5.9 L (6.3-8.2) g/dL Albumin 2.6 L (3.5-5.0) g/dL Vancomycin Trough 20.07 H (10-20) ug/mL 10/06/22 10/06/22 10/06/22 Range/Units 11:41 16:09 21:07 WBC (4.0-10.5) x10^3/uL RBC (4.1-5.6) x10^6/uL Hgb (12.5-18.0) g/dL Hct (42-50) % MCV (78-100) fL MCH (26-32) pg MCHC (32-36) g/dL RDW (11.5-14.0) % Plt Count (150-450) x10^3/uL MPV (7.5-11.0) fL Gran % (36.0-66.0) % Immature Gran % (Auto) (0.00-0.4) % Nucleat RBC Rel Count (0.00-0.1) % Eos # (Auto) (0-0.5) x10^3/uL Immature Gran # (Auto) (0.00-0.03) x10^3u/L Absolute Lymphs (auto) (1.0-4.6) x10^3/uL Absolute Monos (auto) (0.0-1.3) x10^3/uL Absolute Nucleated RBC (0.00-0.01) x10^3u/L Lymphocytes % (24.0-44.0) % Monocytes % (0.0-12.0) % Eosinophils % (0.00-5.0) % Basophils % (0.0-0.4) % Absolute Granulocytes (1.4-6.9) x10^3/uL Basophils # (0-0.4) x10^3/uL Sodium (137-145) mmol/L Potassium (3.5-5.1) mmol/L Chloride (98-107) mmol/L Carbon Dioxide (22-30) mmol/L Anion Gap (5-15) MEQ/L BUN (9-20) mg/dL Creatinine (0.66-1.25) mg/dL Estimated GFR ML/MIN Glucose (74-106) mg/dL POC Glucometer 415 H 279 H 181 H (74 to 106) mg/dL Calcium (8.4-10.2) mg/dL Magnesium (1.6-2.3) mg/dL Total Bilirubin (0.2-1.3) mg/dL AST (17-59) U/L ALT (0-50) U/L Alkaline Phosphatase (38-126) U/L Serum Total Protein (6.3-8.2) g/dL Albumin (3.5-5.0) g/dL Vancomycin Trough (10-20) ug/mL 10/07/22 10/07/22 10/07/22 Range/Units 05:26 05:26 07:35 WBC 7.4 (4.0-10.5) x10^3/uL RBC 5.08 (4.1-5.6) x10^6/uL Hgb 13.1 (12.5-18.0) g/dL Hct 41.2 L (42-50) % MCV 81.1 (78-100) fL MCH 25.8 L (26-32) pg MCHC 31.8 L (32-36) g/dL RDW 13.3 (11.5-14.0) % Plt Count 283 (150-450) x10^3/uL MPV 9.7 (7.5-11.0) fL Gran % 60.0 (36.0-66.0) % Immature Gran % (Auto) 0.4 (0.00-0.4) % Nucleat RBC Rel Count 0.0 (0.00-0.1) % Eos # (Auto) 0.25 (0-0.5) x10^3/uL Immature Gran # (Auto) 0.03 (0.00-0.03) x10^3u/L Absolute Lymphs (auto) 1.99 (1.0-4.6) x10^3/uL Absolute Monos (auto) 0.64 (0.0-1.3) x10^3/uL Absolute Nucleated RBC 0.00 (0.00-0.01) x10^3u/L Lymphocytes % 26.9 (24.0-44.0) % Monocytes % 8.6 (0.0-12.0) % Eosinophils % 3.4 (0.00-5.0) % Basophils % 0.7 (0.0-0.4) % Absolute Granulocytes 4.44 (1.4-6.9) x10^3/uL Basophils # 0.05 (0-0.4) x10^3/uL Sodium 134 L (137-145) mmol/L Potassium 3.9 D (3.5-5.1) mmol/L Chloride 101 (98-107) mmol/L Carbon Dioxide 31 H (22-30) mmol/L Anion Gap 7.0 (5-15) MEQ/L BUN 14 (9-20) mg/dL Creatinine 0.75 (0.66-1.25) mg/dL Estimated GFR > 60.0 ML/MIN Glucose 144 H (74-106) mg/dL POC Glucometer 130 H (74 to 106) mg/dL Calcium 8.2 L (8.4-10.2) mg/dL Magnesium (1.6-2.3) mg/dL Total Bilirubin (0.2-1.3) mg/dL AST (17-59) U/L ALT (0-50) U/L Alkaline Phosphatase (38-126) U/L Serum Total Protein (6.3-8.2) g/dL Albumin (3.5-5.0) g/dL Vancomycin Trough (10-20) ug/mL Radiology Exams: Radiology Procedures Category Date Time Status MARLEY/LIMB PRESSURES BILATERAL [US] Urgent Exams 10/05/22 07:54 Completed ARTERIAL BILAT LOWER EXTREMITY [US] Urgent Exams 10/05/22 07:54 Completed CHEST 1 VIEW (PORTABLE) Urgent Exams 10/05/22 14:52 Completed Multi-Disciplinary Progress Notes: Multi-Disciplinary Progress Notes 10/06/22 13:43 Case Management Note by Zaria Ge PATIENT HAS BEEN ACCEPTED BY [facility]- THEY WILL BE READY FOR HIM NEXT WEEK Initialized on 10/06/22 13:43 - END OF NOTE 10/06/22 11:18 Case Management Note by Zaria Ge S/W PATIENT- HE CONTINUES TO PLAN TO GO TO REHAB AT TIME OF DC- REFERRAL CURRENTLY PENDING AT [facility] Initialized on 10/06/22 11:18 - END OF NOTE 10/06/22 11:18 Case Management Note by Zaria Ge UPDATED CLINICAL FAXED TO [facility] AT THIS TIME Initialized on 10/06/22 11:18 - END OF NOTE 10/06/22 10:50 Case Management Note by Zaria Ge S/Michelle PATIENT ABOUT HISTORY OF DRUG ABUSE- PATIENT DENIES HISTORY OF IV DRUG USE. HE REPORTS HE USES [employer] OCCASIONALLY SOCIALLY BUT THAT IS ALL. Initialized on 10/06/22 10:50 - END OF NOTE Assessment/Plan (1) Osteomyelitis due to type 2 diabetes mellitus Current Visit: Yes Status: Acute Assessment & Plan: POD #2 Progressing without complication Dressings changed revealing relatively healthy tissue. Some maceration but obvious infection Will plan to proceed with Delayed primary closure on Sunday with plan for discharge shortly after If approved recommend senior living for IV abx and maintaining nonweight bearing status Due to patients IV drug use hold PICC line until dc to nursing facility confirmed Will base IV regimen on Cultures and Sensitivity continue pain prophy continue non weight bearing Continue DVT prophy. Will follow closely. Code(s): E11.69 - TYPE 2 DIABETES MELLITUS WITH OTHER SPECIFIED COMPLICATION; M86.9 - OSTEOMYELITIS, UNSPECIFIED (2) Ejection fraction < 50% Current Visit: Yes Status: Acute Code(s): R94.30 - ABNORMAL RESULT OF CARDIOVASCULAR FUNCTION STUDY, UNSP (3) Cellulitis of toe of left foot Current Visit: No Status: Acute Code(s): L03.032 - CELLULITIS OF LEFT TOE (4) Cellulitis of foot associated with diabetes mellitus Current Visit: Yes Status: Acute Code(s): E11.628 - TYPE 2 DIABETES MELLITUS WITH OTHER SKIN COMPLICATIONS; L03.119 - CELLULITIS OF UNSPECIFIED PART OF LIMB (5) Diabetic foot infection Current Visit: Yes Status: Acute Code(s): E11.628 - TYPE 2 DIABETES MELLITUS WITH OTHER SKIN COMPLICATIONS; L08.9 - LOCAL INFECTION OF THE SKIN AND SUBCUTANEOUS TISSUE, UNSP (6) Type 2 diabetes, uncontrolled, with cellulitis of foot Current Visit: Yes Status: Acute Code(s): MNG3644 -
--- NOTE | 2022-10-07 08:54 | PCM.NOTE ---
Date and Time: 10/07/22 0853 Subjective Assessment: last 24 hours events noted. - Review of Systems Constitutional: No Fever, No Chills Eyes: No Symptoms Ears, Nose, & Throat: No Symptoms Respiratory: No Cough, No Short Of Breath Cardiac: No Chest Pain, No Edema, No Syncope Abdominal/Gastrointestinal: No Abdominal Pain, No Nausea, No Vomiting, No Diarrhea Genitourinary Symptoms: No Dysuria Musculoskeletal: No Back Pain, No Neck Pain Skin: No Rash Neurological: No Dizziness, No Focal Weakness, No Sensory Changes Psychological: No Symptoms Endocrine: No Symptoms Hematologic/Lymphatic: No Symptoms Immunological/Allergic: No Symptoms Objective Exam General Appearance: no apparent distress, alert Neurologic Exam: alert, oriented x 3, cooperative, normal mood/affect, nml cerebellar function, sensation nml, No motor deficits Skin Exam: normal color, warm, dry Wound Assessment: Skin/Wound Assessment Wound/Incision Assessment Start: 10/05/22 03:25 Text: Status: Active Freq: Q12H Protocol: Document 10/06/22 20:00 (Rec: 10/06/22 20:15 [id number]) Co-Sign 10/06/22 20:00 MS Wound/Incision Assessment Right Foot Wound Assessment Shift Assessment Wound Stage Unstageable Drainage Amount None General Appearance Blackened Length (cm) (cm) 1.2 Width (cm) (cm) 1.0 Wound Bed Greatest Portion Black (Eschar) rt third toe Wound Assessment Shift Assessment Wound Stage Unstageable Drainage Amount None General Appearance Blackened Length (cm) (cm) 1.0 Width (cm) (cm) 1.0 Wound Bed Greatest Portion Black (Eschar) Left Thigh Wound Assessment Shift Assessment Drainage Amount None Length (cm) (cm) 0.8 Width (cm) (cm) 0.7 Wound Bed Greatest Portion Black (Eschar) fourth toe Wound Assessment Shift Assessment Wound Stage Unstageable General Appearance Blackened Length (cm) (cm) 0.3 Width (cm) (cm) 0.3 Wound Bed Greatest Portion Black (Eschar) Left Toe Wound Assessment Shift Assessment Wound Type Amputation Comment dressing cdi Wound Photo Photo Taken Yes Comment: SEE PICTURES IN CHART Eye Exam: PERRL, EOMI, eyes nml inspection Ears, Nose, Throat Exam: normal ENT inspection, pharynx normal, moist mucous membranes Neck Exam: normal inspection, non-tender, supple, full range of motion Respiratory Exam: normal breath sounds, lungs clear, No respiratory distress Cardiovascular Exam: regular rate/rhythm, normal heart sounds Gastrointestinal/Abdomen Exam: soft, No tenderness, No mass Extremity Exam: normal inspection, normal range of motion Back Exam: normal inspection, normal range of motion, No CVA tenderness, No vertebral tenderness Male Genitalia Exam: deferred Rectal Exam: deferred OBJECTIVE DATA Vital Signs: Vital Signs - 24 hr Temp Pulse Resp BP Pulse Ox 10/07/22 08:00 97.5 F 85 19 171/95 95 10/07/22 04:00 97.1 F 91 H 18 147/79 95 10/06/22 23:36 97.3 F 85 20 145/81 95 10/06/22 19:52 98.0 F 86 20 153/78 96 10/06/22 16:00 97.1 F 86 18 147/82 93 L 10/06/22 11:49 97.7 F 92 H 18 143/85 94 L Pain Assessment - Last Documented Pain Intensity 9 Pain Scale Used 0-10 Pain Scale Intake and Output: Intake & Output 10/04/22 10/05/22 10/06/22 10/07/22 11:59 11:59 11:59 11:59 Intake Total 0 4419 3323 Output Total 450 2600 2500 Balance -450 1819 823 Weight 98.9 kg Lab Results: Lab Results-Last 24 Hours 10/06/22 10/06/22 10/06/22 Range/Units 07:20 07:20 11:33 WBC (4.0-10.5) x10^3/uL RBC (4.1-5.6) x10^6/uL Hgb (12.5-18.0) g/dL Hct (42-50) % MCV (78-100) fL MCH (26-32) pg MCHC (32-36) g/dL RDW (11.5-14.0) % Plt Count (150-450) x10^3/uL MPV (7.5-11.0) fL Gran % (36.0-66.0) % Immature Gran % (Auto) (0.00-0.4) % Nucleat RBC Rel Count (0.00-0.1) % Eos # (Auto) (0-0.5) x10^3/uL Immature Gran # (Auto) (0.00-0.03) x10^3u/L Absolute Lymphs (auto) (1.0-4.6) x10^3/uL Absolute Monos (auto) (0.0-1.3) x10^3/uL Absolute Nucleated RBC (0.00-0.01) x10^3u/L Lymphocytes % (24.0-44.0) % Monocytes % (0.0-12.0) % Eosinophils % (0.00-5.0) % Basophils % (0.0-0.4) % Absolute Granulocytes (1.4-6.9) x10^3/uL Basophils # (0-0.4) x10^3/uL Sodium 136 L (137-145) mmol/L Potassium 5.0 D (3.5-5.1) mmol/L Chloride 101 (98-107) mmol/L Carbon Dioxide 32 H (22-30) mmol/L Anion Gap 7.6 (5-15) MEQ/L BUN 14 (9-20) mg/dL Creatinine 0.83 (0.66-1.25) mg/dL Estimated GFR > 60.0 ML/MIN Glucose 112 H (74-106) mg/dL POC Glucometer 200 H (74 to 106) mg/dL Calcium 8.0 L (8.4-10.2) mg/dL Magnesium 1.6 (1.6-2.3) mg/dL Total Bilirubin 0.50 (0.2-1.3) mg/dL AST 170 H (17-59) U/L ALT 142 H (0-50) U/L Alkaline Phosphatase 504 H (38-126) U/L Serum Total Protein 5.9 L (6.3-8.2) g/dL Albumin 2.6 L (3.5-5.0) g/dL Vancomycin Trough 20.07 H (10-20) ug/mL 10/06/22 10/06/22 10/06/22 Range/Units 11:41 16:09 21:07 WBC (4.0-10.5) x10^3/uL RBC (4.1-5.6) x10^6/uL Hgb (12.5-18.0) g/dL Hct (42-50) % MCV (78-100) fL MCH (26-32) pg MCHC (32-36) g/dL RDW (11.5-14.0) % Plt Count (150-450) x10^3/uL MPV (7.5-11.0) fL Gran % (36.0-66.0) % Immature Gran % (Auto) (0.00-0.4) % Nucleat RBC Rel Count (0.00-0.1) % Eos # (Auto) (0-0.5) x10^3/uL Immature Gran # (Auto) (0.00-0.03) x10^3u/L Absolute Lymphs (auto) (1.0-4.6) x10^3/uL Absolute Monos (auto) (0.0-1.3) x10^3/uL Absolute Nucleated RBC (0.00-0.01) x10^3u/L Lymphocytes % (24.0-44.0) % Monocytes % (0.0-12.0) % Eosinophils % (0.00-5.0) % Basophils % (0.0-0.4) % Absolute Granulocytes (1.4-6.9) x10^3/uL Basophils # (0-0.4) x10^3/uL Sodium (137-145) mmol/L Potassium (3.5-5.1) mmol/L Chloride (98-107) mmol/L Carbon Dioxide (22-30) mmol/L Anion Gap (5-15) MEQ/L BUN (9-20) mg/dL Creatinine (0.66-1.25) mg/dL Estimated GFR ML/MIN Glucose (74-106) mg/dL POC Glucometer 415 H 279 H 181 H (74 to 106) mg/dL Calcium (8.4-10.2) mg/dL Magnesium (1.6-2.3) mg/dL Total Bilirubin (0.2-1.3) mg/dL AST (17-59) U/L ALT (0-50) U/L Alkaline Phosphatase (38-126) U/L Serum Total Protein (6.3-8.2) g/dL Albumin (3.5-5.0) g/dL Vancomycin Trough (10-20) ug/mL 10/07/22 10/07/22 10/07/22 Range/Units 05:26 05:26 07:35 WBC 7.4 (4.0-10.5) x10^3/uL RBC 5.08 (4.1-5.6) x10^6/uL Hgb 13.1 (12.5-18.0) g/dL Hct 41.2 L (42-50) % MCV 81.1 (78-100) fL MCH 25.8 L (26-32) pg MCHC 31.8 L (32-36) g/dL RDW 13.3 (11.5-14.0) % Plt Count 283 (150-450) x10^3/uL MPV 9.7 (7.5-11.0) fL Gran % 60.0 (36.0-66.0) % Immature Gran % (Auto) 0.4 (0.00-0.4) % Nucleat RBC Rel Count 0.0 (0.00-0.1) % Eos # (Auto) 0.25 (0-0.5) x10^3/uL Immature Gran # (Auto) 0.03 (0.00-0.03) x10^3u/L Absolute Lymphs (auto) 1.99 (1.0-4.6) x10^3/uL Absolute Monos (auto) 0.64 (0.0-1.3) x10^3/uL Absolute Nucleated RBC 0.00 (0.00-0.01) x10^3u/L Lymphocytes % 26.9 (24.0-44.0) % Monocytes % 8.6 (0.0-12.0) % Eosinophils % 3.4 (0.00-5.0) % Basophils % 0.7 (0.0-0.4) % Absolute Granulocytes 4.44 (1.4-6.9) x10^3/uL Basophils # 0.05 (0-0.4) x10^3/uL Sodium 134 L (137-145) mmol/L Potassium 3.9 D (3.5-5.1) mmol/L Chloride 101 (98-107) mmol/L Carbon Dioxide 31 H (22-30) mmol/L Anion Gap 7.0 (5-15) MEQ/L BUN 14 (9-20) mg/dL Creatinine 0.75 (0.66-1.25) mg/dL Estimated GFR > 60.0 ML/MIN Glucose 144 H (74-106) mg/dL POC Glucometer 130 H (74 to 106) mg/dL Calcium 8.2 L (8.4-10.2) mg/dL Magnesium (1.6-2.3) mg/dL Total Bilirubin (0.2-1.3) mg/dL AST (17-59) U/L ALT (0-50) U/L Alkaline Phosphatase (38-126) U/L Serum Total Protein (6.3-8.2) g/dL Albumin (3.5-5.0) g/dL Vancomycin Trough (10-20) ug/mL Radiology Exams: Radiology Procedures Category Date Time Status MARLEY/LIMB PRESSURES BILATERAL [US] Urgent Exams 10/05/22 07:54 Completed ARTERIAL BILAT LOWER EXTREMITY [US] Urgent Exams 10/05/22 07:54 Completed CHEST 1 VIEW (PORTABLE) Urgent Exams 10/05/22 14:52 Completed Multi-Disciplinary Progress Notes: Multi-Disciplinary Progress Notes 10/06/22 13:43 Case Management Note by Zaria Ge PATIENT HAS BEEN ACCEPTED BY [facility]- THEY WILL BE READY FOR HIM NEXT WEEK Initialized on 10/06/22 13:43 - END OF NOTE 10/06/22 11:18 Case Management Note by Zaria Ge S/Michelle PATIENT- HE CONTINUES TO PLAN TO GO TO REHAB AT TIME OF DC- REFERRAL CURRENTLY PENDING AT [facility] Initialized on 10/06/22 11:18 - END OF NOTE 10/06/22 11:18 Case Management Note by Zaria Ge UPDATED CLINICAL [facility]ED [facility] Initialized on 10/06/22 11:18 - END OF NOTE 10/06/22 10:50 Case Management Note by Zaria Ge S/Michelle PATIENT ABOUT HISTORY OF DRUG ABUSE- PATIENT DENIES HISTORY OF IV DRUG USE. HE REPORTS HE USES [employer] OCCASIONALLY SOCIALLY BUT THAT IS ALL. Initialized on 10/06/22 10:50 - END OF NOTE Assessment/Plan (1) Cellulitis of foot associated with diabetes mellitus Current Visit: Yes Status: Acute Code(s): E11.628 - TYPE 2 DIABETES MELLITUS WITH OTHER SKIN COMPLICATIONS; L03.119 - CELLULITIS OF UNSPECIFIED PART OF LIMB (2) Cardiomyopathy Current Visit: Yes Status: Acute Code(s): I42.9 - CARDIOMYOPATHY, UNSPECIFIED (3) Diabetic foot infection Current Visit: Yes Status: Acute Code(s): E11.628 - TYPE 2 DIABETES MELLITUS WITH OTHER SKIN COMPLICATIONS; L08.9 - LOCAL INFECTION OF THE SKIN AND SUBCUTANEOUS TISSUE, UNSP (4) Left hallux osteomyelitis Current Visit: Yes Status: Acute Code(s): M86.9 - OSTEOMYELITIS, UNSPECIFIED
[2022-10-07] MEDS: NORVASC 5 MG PO SCH (10:59)
[2022-10-07] MEDS: LASIX 20 MG PO SCH (10:59)
[2022-10-07] MEDS: Klor Con PO SCH (10:59)
[2022-10-07] MEDS: Lexapro PO SCH (10:59)
[2022-10-07] MEDS: ZOCOR 20MG PO SCH (10:59)
[2022-10-07] MEDS: Lantus Insulin SQ SCH (11:00)
[2022-10-07] MEDS: PROTONIX 40 MG IV IV SCH (11:00)
[2022-10-07] MEDS: Cozaar 50 MG PO SCH (11:00)
[2022-10-07] MEDS: JARDIANCE PO SCH (11:00)
[2022-10-07] MEDS: NORCO 5/325 MG PO PRN ×3 (12:26→21:25)
[2022-10-07] MEDS: HUMALOG SQ PRN ×3 (12:26→22:10)
[2022-10-08] MEDS: MORPHINE SULFATE 4 MG INJ IV PRN (03:01)
[2022-10-08] MEDS ORDERED: TROUGH DRUG LEVELS IJ ONE (05:30)
[2022-10-08] MEDS: PIPERACILLIN/TAZOBACTAM 3.375 GM in Sodium Chloride 100ML MINI-BAG PLUS 100 ML IV SCH ×6 (05:33→23:54)
[2022-10-08] MEDS: NORCO 5/325 MG PO PRN ×3 (05:40→17:46)
[2022-10-08 05:54] LABS: Absolute Neutrophil Ct (ANC) 3.75 x10^3/uL (1.4-6.9); BASOPHIL % 0.7 % (0.0-0.4); Basophil (Absolute #) 0.05 x10^3/uL (0-0.4); Eosinophil % 3.4 % (0.00-5.0); Eosinophil (Absolute #) 0.23 x10^3/uL (0-0.5); Hematocrit 38.4 % (42-50); Hemoglobin 12.6 g/dL (12.5-18.0); IMMATURE GRAN # 0.04 x10^3u/L (0.00-0.03); IMMATURE GRAN % 0.6 % (0.00-0.4); Lymphocyte (Absolute #) 2.19 x10^3/uL (1.0-4.6); Lymphocytes % 32.1 % (24.0-44.0); Mean Cell Volume 80.3 fL (78-100); Mean Corpuscular Hemoglobin 26.4 pg (26-32); Mean Corpuscular Hgb Concent. 32.8 g/dL (32-36); Mean Platelet Volume 9.5 fL (7.5-11.0); Monocyte (Absolute #) 0.56 x10^3/uL (0.0-1.3); Monocytes % 8.2 % (0.0-12.0); Platelet Count 283 x10^3/uL (150-450); Red Blood Count 4.78 x10^6/uL (4.1-5.6); Red Cell Distribution Width 13.4 % (11.5-14.0); White Blood Count 6.8 x10^3/uL (4.0-10.5)
[2022-10-08 06:03] LABS: ANION GAP 5.9 MEQ/L (5-15); BLOOD UREA NITROGEN 18 mg/dL (9-20); CHLORIDE 104 mmol/L (98-107); Calcium 7.9 mg/dL (8.4-10.2); Carbon Dioxide 30 mmol/L (22-30); Creatinine 1 0.68 mg/dL (0.66-1.25); EST GLOMERULAR FILTRATION RATE > 60.0 ML/MIN; Glucose 115 mg/dL (74-106); SODIUM 135 mmol/L (137-145)
[2022-10-08] MEDS: VANCOMYCIN 2 GRAM/400 ML BAG 2 GM/400 ML PIGGYBACK IV SCH (07:23)
--- NOTE | 2022-10-08 08:21 | PCM.NOTE ---
Date and Time: 10/08/22819 Subjective Assessment: doing ok - Review of Systems Constitutional: No Fever, No Chills Eyes: No Symptoms Ears, Nose, & Throat: No Symptoms Respiratory: No Cough, No Short Of Breath Cardiac: No Chest Pain, No Edema, No Syncope Abdominal/Gastrointestinal: No Abdominal Pain, No Nausea, No Vomiting, No Diarrhea Genitourinary Symptoms: No Dysuria Musculoskeletal: No Back Pain, No Neck Pain Skin: No Rash Neurological: No Dizziness, No Focal Weakness, No Sensory Changes Psychological: No Symptoms Endocrine: No Symptoms Hematologic/Lymphatic: No Symptoms Immunological/Allergic: No Symptoms Objective Exam General Appearance: no apparent distress, alert Neurologic Exam: alert, oriented x 3, cooperative, normal mood/affect, nml cerebellar function, sensation nml, No motor deficits Skin Exam: normal color, warm, dry Wound Assessment: Skin/Wound Assessment Wound/Incision Assessment Start: 10/05/22 03:25 Text: Status: Active Freq: Q12H Protocol: Document 10/07/22 20:00 (Rec: 10/07/22 22:30 [id number]) Wound/Incision Assessment Right Foot Wound Assessment Shift Assessment Wound Stage Unstageable Dressing Status Dry & Intact Drainage Amount None Length (cm) (cm) 1.2 Width (cm) (cm) 1.0 Wound Bed Greatest Portion Black (Eschar) Comment unable to visualize. changed dressing on day shift, dressing is clean, dry and intact rt third toe Wound Assessment Shift Assessment Wound Stage Unstageable Drainage Amount None General Appearance Open to air,Blackened Length (cm) (cm) 1.0 Width (cm) (cm) 1.0 Wound Bed Greatest Portion Black (Eschar) Left Thigh Length (cm) (cm) 0.8 fourth toe Wound Assessment Shift Assessment Wound Stage Unstageable General Appearance Blackened Length (cm) (cm) 0.3 Width (cm) (cm) 0.3 Wound Bed Greatest Portion Black (Eschar) Left Toe Wound Assessment Shift Assessment Wound Type Amputation Comment dressing cdi Wound Photo Photo Taken Yes Comment: SEE PICTURES IN CHART Eye Exam: PERRL, EOMI, eyes nml inspection Ears, Nose, Throat Exam: normal ENT inspection, pharynx normal, moist mucous membranes Neck Exam: normal inspection, non-tender, supple, full range of motion Respiratory Exam: normal breath sounds, lungs clear, No respiratory distress Cardiovascular Exam: regular rate/rhythm, normal heart sounds Gastrointestinal/Abdomen Exam: soft, No tenderness, No mass Extremity Exam: normal inspection, normal range of motion Back Exam: normal inspection, normal range of motion, No CVA tenderness, No vertebral tenderness Male Genitalia Exam: deferred Rectal Exam: deferred OBJECTIVE DATA Vital Signs: Vital Signs - 24 hr Temp Pulse Resp BP Pulse Ox 10/08/22 07:10 98.7 F 75 16 161/89 95 10/08/22 03:52 97.8 F 88 18 171/84 95 10/08/22 00:00 97.3 F 83 18 156/80 95 10/07/22 19:56 98.0 F 84 18 135/71 95 10/07/22 16:00 97.3 F 85 19 159/80 96 10/07/22 11:48 97.5 F 85 19 185/99 95 Pain Assessment - Last Documented Pain Intensity 7 Pain Scale Used 0-10 Pain Scale Intake and Output: Intake & Output 10/05/22 10/06/22 10/07/22 10/08/22 11:59 11:59 11:59 11:59 Intake Total 0 4419 3383 2196 Output Total 450 2600 2500 2725 Balance -450 1819 883 -529 Weight 98.9 kg 98.8 kg 99.9 kg Lab Results: Lab Results-Last 24 Hours 10/07/22 10/07/22 10/07/22 Range/Units 11:39 15:43 21:33 WBC (4.0-10.5) x10^3/uL RBC (4.1-5.6) x10^6/uL Hgb (12.5-18.0) g/dL Hct (42-50) % MCV (78-100) fL MCH (26-32) pg MCHC (32-36) g/dL RDW (11.5-14.0) % Plt Count (150-450) x10^3/uL MPV (7.5-11.0) fL Gran % (36.0-66.0) % Immature Gran % (Auto) (0.00-0.4) % Nucleat RBC Rel Count (0.00-0.1) % Eos # (Auto) (0-0.5) x10^3/uL Immature Gran # (Auto) (0.00-0.03) x10^3u/L Absolute Lymphs (auto) (1.0-4.6) x10^3/uL Absolute Monos (auto) (0.0-1.3) x10^3/uL Absolute Nucleated RBC (0.00-0.01) x10^3u/L Lymphocytes % (24.0-44.0) % Monocytes % (0.0-12.0) % Eosinophils % (0.00-5.0) % Basophils % (0.0-0.4) % Absolute Granulocytes (1.4-6.9) x10^3/uL Basophils # (0-0.4) x10^3/uL Sodium (137-145) mmol/L Potassium (3.5-5.1) mmol/L Chloride (98-107) mmol/L Carbon Dioxide (22-30) mmol/L Anion Gap (5-15) MEQ/L BUN (9-20) mg/dL Creatinine (0.66-1.25) mg/dL Estimated GFR ML/MIN Glucose (74-106) mg/dL POC Glucometer 197 H 309 H 185 H (74 to 106) mg/dL Calcium (8.4-10.2) mg/dL Vancomycin Trough (10-20) ug/mL 10/08/22 10/08/22 10/08/22 Range/Units 05:32 05:32 05:32 WBC 6.8 (4.0-10.5) x10^3/uL RBC 4.78 (4.1-5.6) x10^6/uL Hgb 12.6 (12.5-18.0) g/dL Hct 38.4 L (42-50) % MCV 80.3 (78-100) fL MCH 26.4 (26-32) pg MCHC 32.8 (32-36) g/dL RDW 13.4 (11.5-14.0) % Plt Count 283 (150-450) x10^3/uL MPV 9.5 (7.5-11.0) fL Gran % 55.0 (36.0-66.0) % Immature Gran % (Auto) 0.6 H (0.00-0.4) % Nucleat RBC Rel Count 0.0 (0.00-0.1) % Eos # (Auto) 0.23 (0-0.5) x10^3/uL Immature Gran # (Auto) 0.04 H (0.00-0.03) x10^3u/L Absolute Lymphs (auto) 2.19 (1.0-4.6) x10^3/uL Absolute Monos (auto) 0.56 (0.0-1.3) x10^3/uL Absolute Nucleated RBC 0.00 (0.00-0.01) x10^3u/L Lymphocytes % 32.1 (24.0-44.0) % Monocytes % 8.2 (0.0-12.0) % Eosinophils % 3.4 (0.00-5.0) % Basophils % 0.7 (0.0-0.4) % Absolute Granulocytes 3.75 (1.4-6.9) x10^3/uL Basophils # 0.05 (0-0.4) x10^3/uL Sodium 135 L (137-145) mmol/L Potassium 4.0 (3.5-5.1) mmol/L Chloride 104 (98-107) mmol/L Carbon Dioxide 30 (22-30) mmol/L Anion Gap 5.9 (5-15) MEQ/L BUN 18 (9-20) mg/dL Creatinine 0.68 (0.66-1.25) mg/dL Estimated GFR > 60.0 ML/MIN Glucose 115 H (74-106) mg/dL POC Glucometer (74 to 106) mg/dL Calcium 7.9 L (8.4-10.2) mg/dL Vancomycin Trough 20.47 H (10-20) ug/mL 10/08/22 Range/Units 06:31 WBC (4.0-10.5) x10^3/uL RBC (4.1-5.6) x10^6/uL Hgb (12.5-18.0) g/dL Hct (42-50) % MCV (78-100) fL MCH (26-32) pg MCHC (32-36) g/dL RDW (11.5-14.0) % Plt Count (150-450) x10^3/uL MPV (7.5-11.0) fL Gran % (36.0-66.0) % Immature Gran % (Auto) (0.00-0.4) % Nucleat RBC Rel Count (0.00-0.1) % Eos # (Auto) (0-0.5) x10^3/uL Immature Gran # (Auto) (0.00-0.03) x10^3u/L Absolute Lymphs (auto) (1.0-4.6) x10^3/uL Absolute Monos (auto) (0.0-1.3) x10^3/uL Absolute Nucleated RBC (0.00-0.01) x10^3u/L Lymphocytes % (24.0-44.0) % Monocytes % (0.0-12.0) % Eosinophils % (0.00-5.0) % Basophils % (0.0-0.4) % Absolute Granulocytes (1.4-6.9) x10^3/uL Basophils # (0-0.4) x10^3/uL Sodium (137-145) mmol/L Potassium (3.5-5.1) mmol/L Chloride (98-107) mmol/L Carbon Dioxide (22-30) mmol/L Anion Gap (5-15) MEQ/L BUN (9-20) mg/dL Creatinine (0.66-1.25) mg/dL Estimated GFR ML/MIN Glucose (74-106) mg/dL POC Glucometer 111 H (74 to 106) mg/dL Calcium (8.4-10.2) mg/dL Vancomycin Trough (10-20) ug/mL Assessment/Plan (1) Left hallux osteomyelitis Current Visit: Yes Status: Acute Assessment & Plan: Chief Complaint Diagnosis DIABETIC FOOT INFECTION Allergies Allergy/AdvReac Type Severity Reaction Status Date / Time No Known Drug Allergies Allergy Verified 10/04/22 23:06 Vital Signs (Last 24 hours) Temp Pulse Resp BP Pulse Ox 10/08/22 07:10 98.7 F 75 16 161/89 95 10/08/22 03:52 97.8 F 88 18 171/84 95 10/08/22 00:00 97.3 F 83 18 156/80 95 10/07/22 19:56 98.0 F 84 18 135/71 95 10/07/22 16:00 97.3 F 85 19 159/80 96 10/07/22 11:48 97.5 F 85 19 185/99 95 Home Medications Medication Instructions Recorded Confirmed Last Taken Type Aspirin EC 81 mg [Ecotrin 81 1 tab PO DAILY 10/04/22 10/04/22 10/04/22 14:00 History mg] Empagliflozin [Jardiance] 25 mg PO DAILY 10/04/22 10/04/22 10/04/22 14:00 History Escitalopram Oxalate 10 mg PO DAILY 10/04/22 10/04/22 10/04/22 14:00 History Insulin Glargine,Hum.rec.anlog 40 units SQ BID 10/04/22 10/04/22 10/04/22 22:00 History [Insulin Glargine] Losartan Potassium [Cozaar] 25 mg PO DAILY 10/04/22 10/04/22 10/04/22 14:00 History Metformin HCl 500 mg 1 tab PO BID 10/04/22 10/04/22 10/04/22 22:00 History [Glucophage 500 MG] Current Medications Generic Name Dose Route Start Last Admin Trade Name Freq PRN Reason Stop Dose Admin Hydrocodone Bitart/Acetaminophen 1 tab 10/07/22 10:47 10/08/22 05:40 Hydrocodone/Apap 5/325 1 Tab Tablet PO 10/12/22 10:46 1 tab Q4H PRN PRN Administration PAIN Amlodipine Besylate 10 mg 10/05/22 10:00 10/07/22 10:59 Amlodipine Besylate 5 Mg Tablet PO 11/04/22 09:59 10 mg QAM ASHLIE Administration Empagliflozin 25 mg 10/05/22 10:00 10/07/22 11:00 Empagliflozin 10 Mg Tablet PO 11/04/22 09:59 25 mg DAILY ASHLIE Administration Escitalopram Oxalate 10 mg 10/05/22 10:00 10/07/22 10:59 Escitalopram Oxalate 10 Mg Tablet PO 11/04/22 09:59 10 mg DAILY ASHLIE Administration Furosemide 20 mg 10/05/22 10:00 10/07/22 10:59 Furosemide 20 Mg Tablet PO 11/04/22 09:59 20 mg DAILY ASHLIE Administration Piperacillin Sod/Tazobactam 100 mls @ 200 mls/hr 10/05/22 06:00 10/08/22 05:33 Sod 3.375 gm/ Sodium Chloride IV 10/09/22 05:59 200 mls/hr Q6HT ASHLIE Administration Vancomycin HCl 2 gm in 400 mls @ 200 mls/hr 10/07/22 06:00 10/08/22 07:23 Vancomycin 2 Gram/400 Ml Bag IV 11/06/22 05:59 200 mls/hr Q12H ASHLIE Administration Insulin Glargine 10 unit 10/05/22 10:00 10/07/22 11:00 Insulin Glargine 1 Unit SQ 11/04/22 09:59 10 unit DAILY ASHLIE Administration Insulin Human Lispro 0 unit 10/05/22 02:27 10/07/22 22:10 Insulin Lispro 1 Unit SQ 11/04/22 02:26 3 unit UD PRN Administration HYPERGLYCEMIA Losartan Potassium 50 mg 10/06/22 08:51 10/07/22 11:00 Losartan Potassium 50 Mg Tablet PO 11/04/22 09:59 50 mg DAILY ASHLIE Administration Morphine Sulfate 4 mg 10/05/22 02:27 10/08/22 03:01 Morphine Sulfate 4 Mg/Ml Injection IV 10/10/22 02:26 4 mg Q4H PRN PRN Administration PAIN Ondansetron HCl 4 mg 10/05/22 02:27 Ondansetron Hcl 4 Mg/2 Ml Vial IV 11/04/22 02:26 Q6H PRN PRN NAUSEA/VOMITING Pantoprazole Sodium 40 mg 10/05/22 10:00 10/07/22 11:00 Pantoprazole 40 Mg Vial IV 11/04/22 09:59 40 mg Q24H10 ASHLIE Administration Potassium Chloride 20 meq 10/05/22 10:00 10/07/22 10:59 Potassium Chloride Tab 10 Meq Tab PO 11/04/22 09:59 20 meq DAILY ASHLIE Administration Simvastatin 20 mg 10/06/22 10:00 10/07/22 10:59 Simvastatin 20 Mg Tablet PO 11/05/22 09:59 20 mg DAILY ASHLIE Administration Discontinued Medications Generic Name Dose Route Start Last Admin Trade Name Freq PRN Reason Stop Dose Admin Albuterol/Ipratropium 3 ml 10/05/22 02:27 Ipratropium/Albuterol Sulfate 3 Ml Ampul.Neb IH 11/04/22 02:26 Q4HPRN PRN SHORTNESS OF BREATH/WHEEZING Bupivacaine HCl Confirm 05/18/23 10:46 Bupivacaine Hcl/Pf 150 Mg/30 Ml Vial Administered 10/05/22 10:47 Dose 150 mg .ROUTE .STK-MED ONE Device 1 10/06/22 07:30 10/06/22 09:15 Therapuetic Drug Level Monitor Each IJ 10/06/22 07:31 1 1XONLY ONE Administration Device 1 10/08/22 05:30 Therapuetic Drug Level Monitor Each IJ 10/08/22 05:31 1XONLY ONE Sodium Chloride 1,000 mls @ 999 mls/hr 10/04/22 23:03 10/05/22 00:48 Sodium Chloride 0.9% 1000 Ml IV 10/05/22 00:03 Infused .Q1H1M STA Infusion Piperacillin Sod/Tazobactam 100 mls @ 200 mls/hr 10/04/22 23:04 10/04/22 23:34 Sod 3.375 gm/ Sodium Chloride IV 10/04/22 23:33 200 mls/hr STAT ONE Administration Vancomycin HCl 2 gm in 400 mls @ 133.333 mls/hr 10/04/22 23:05 10/05/22 00:18 Vancomycin 2 Gram/400 Ml Bag IV 10/05/22 02:04 133.33 mls/hr STAT ONE 133.33 mls/hr Administration Sodium Chloride Confirm 10/04/22 23:32 Sodium Chloride 0.9% 1000 Ml Administered 10/04/22 23:33 Dose 1,000 mls @ ud .ROUTE .STK-MED ONE Sodium Chloride Confirm 10/04/22 23:33 Sodium Chloride 100ml Mini-Bag Plus Administered 10/04/22 23:34 Dose 100 mls @ ud IV .STK-MED ONE Vancomycin HCl Confirm 10/04/22 23:46 Vancomycin 2 Gram/400 Ml Bag Administered 10/04/22 23:47 Dose 2 gm in 400 mls @ ud IV .STK-MED ONE Sodium Chloride 1,000 mls @ 50 mls/hr 10/05/22 01:00 10/05/22 23:03 Sodium Chloride 0.9% 1000 Ml IV 11/04/22 00:59 125 mls/hr .Q20H ASHLIE Administration Vancomycin HCl 1 gm/ Sodium 250 mls @ 125 mls/hr 10/05/22 02:27 10/05/22 03:55 Chloride IV 11/04/22 02:26 Not Given Q12H ASHLIE Sodium Chloride Confirm 10/05/22 05:10 Sodium Chloride 100ml Mini-Bag Plus Administered 10/05/22 05:11 Dose 100 mls @ ud IV .STK-MED ONE Vancomycin HCl 1.5 gm in 300 mls @ 150 mls/hr 10/05/22 08:00 10/06/22 16:01 Vancomycin 1.5 Gram/300 Ml Bag IV 10/07/22 13:00 150 mls/hr Q8H ASHLIE Administration Vancomycin HCl 500 mg/ Sodium 100 mls @ 100 mls/hr 10/06/22 17:00 10/06/22 18:15 Chloride IV 10/06/22 17:59 100 mls/hr ONCE ONE Administration Insulin Human Regular 12 unit 10/05/22 00:46 10/05/22 00:52 Insulin Regular, Human 1 Unit IV 10/05/22 00:47 12 unit STAT ONE Administration Insulin Human Regular Confirm 10/05/22 00:51 Insulin Regular, Human 1 Unit Administered 10/05/22 00:52 Dose 12 unit .ROUTE .STK-MED ONE Labetalol HCl 10 mg 10/05/22 00:40 10/05/22 00:54 Labetalol Hcl 20 Mg/4 Ml Disp.Syringe IV 10/05/22 00:41 10 mg STAT ONE Administration Labetalol HCl Confirm 10/05/22 00:52 Labetalol Hcl 20 Mg/4 Ml Disp.Syringe Administered 10/05/22 00:53 Dose 20 mg IV .STK-MED ONE Lidocaine HCl Confirm 10/05/22 10:46 Lidocaine Hcl/Pf 1 % 30 Ml Pf Sdv Administered 10/05/22 10:47 Dose 30 ml IJ .STK-MED ONE Losartan Potassium 25 mg 10/05/22 10:00 10/05/22 12:56 Losartan Potassium 50 Mg Tablet PO 11/04/22 09:59 25 mg DAILY ASHLIE Administration Morphine Sulfate 4 mg 10/05/22 00:46 10/05/22 00:53 Morphine Sulfate 4 Mg/Ml Injection IV 10/05/22 00:47 4 mg STAT ONE Administration Morphine Sulfate Confirm 10/05/22 00:51 Morphine Sulfate 4 Mg/Ml Injection Administered 10/05/22 00:52 Dose 4 mg .ROUTE .STK-MED ONE Ondansetron HCl 4 mg 10/05/22 00:46 10/05/22 00:53 Ondansetron Hcl 4 Mg/2 Ml Vial IV 10/05/22 00:47 4 mg STAT ONE Administration Ondansetron HCl Confirm 10/05/22 00:50 Ondansetron Hcl 4 Mg/2 Ml Vial Administered 10/05/22 00:51 Dose 4 mg .ROUTE .STK-MED ONE Piperacillin Sod/Tazobactam Sod Confirm 10/04/22 23:32 Piperacillin/Tazobactam Sodium 3.375 Gm Vial Administered 10/04/22 23:33 Dose 3.375 gm IV .STK-MED ONE Piperacillin Sod/Tazobactam Sod Confirm 10/05/22 05:10 Piperacillin/Tazobactam Sodium 3.375 Gm Vial Administered 10/05/22 05:11 Dose 3.375 gm IV .STK-MED ONE Intake & Output (Last 24 hours) 10/05/22 10/06/22 10/07/22 10/08/22 11:59 11:59 11:59 11:59 Intake Total 0 4419 3383 2196 Output Total 450 2600 2500 2725 Balance -450 1819 883 -529 Weight 98.9 kg 98.8 kg 99.9 kg Microbiology Results (Last 24 hours) 10/05/22 12:56 Bone - Not Known Anaerobic Culture - Pending 10/05/22 12:56 Bone - Not Known Tissue Culture - Pending 10/05/22 12:55 Toe - L Third Anaerobic Culture - Pending 10/05/22 12:55 Toe - L Third Tissue Culture - Pending 10/05/22 12:53 Toe - L Second Anaerobic Culture - Pending 10/05/22 12:53 Toe - L Second Tissue Culture - Pending Laboratory Results (Last 24 hours) 10/08/22 10/08/22 10/08/22 06:31 05:32 05:32 WBC RBC Hgb Hct MCV MCH MCHC RDW Plt Count MPV Gran % Immature Gran % (Auto) Nucleat RBC Rel Count Eos # (Auto) Immature Gran # (Auto) Absolute Lymphs (auto) Absolute Monos (auto) Absolute Nucleated RBC Lymphocytes % Monocytes % Eosinophils % Basophils % Absolute Granulocytes Basophils # Sodium 135 L Potassium 4.0 Chloride 104 Carbon Dioxide 30 Anion Gap 5.9 BUN 18 Creatinine 0.68 Estimated GFR > 60.0 Glucose 115 H POC Glucometer 111 H Calcium 7.9 L Vancomycin Trough 20.47 H 10/08/22 10/07/22 10/07/22 05:32 21:33 15:43 WBC 6.8 RBC 4.78 Hgb 12.6 Hct 38.4 L MCV 80.3 MCH 26.4 MCHC 32.8 RDW 13.4 Plt Count 283 MPV 9.5 Gran % 55.0 Immature Gran % (Auto) 0.6 H Nucleat RBC Rel Count 0.0 Eos # (Auto) 0.23 Immature Gran # (Auto) 0.04 H Absolute Lymphs (auto) 2.19 Absolute Monos (auto) 0.56 Absolute Nucleated RBC 0.00 Lymphocytes % 32.1 Monocytes % 8.2 Eosinophils % 3.4 Basophils % 0.7 Absolute Granulocytes 3.75 Basophils # 0.05 Sodium Potassium Chloride Carbon Dioxide Anion Gap BUN Creatinine Estimated GFR Glucose POC Glucometer 185 H 309 H Calcium Vancomycin Trough 10/07/22 11:39 WBC RBC Hgb Hct MCV MCH MCHC RDW Plt Count MPV Gran % Immature Gran % (Auto) Nucleat RBC Rel Count Eos # (Auto) Immature Gran # (Auto) Absolute Lymphs (auto) Absolute Monos (auto) Absolute Nucleated RBC Lymphocytes % Monocytes % Eosinophils % Basophils % Absolute Granulocytes Basophils # Sodium Potassium Chloride Carbon Dioxide Anion Gap BUN Creatinine Estimated GFR Glucose POC Glucometer 197 H Calcium Vancomycin Trough Orders (Last 24 hours) Category Date Time Status BMP DAILY Lab 10/08/22 05:32 Completed BMP DAILY Lab 10/09/22 04:00 Ordered BMP DAILY Lab 10/10/22 04:00 Ordered BMP DAILY Lab 10/11/22 04:00 Ordered BMP DAILY Lab 10/12/22 04:00 Ordered BMP DAILY Lab 10/13/22 04:00 Ordered CBC W DIFF DAILY Lab 10/08/22 05:32 Completed CBC W DIFF DAILY Lab 10/09/22 04:00 Ordered CBC W DIFF DAILY Lab 10/10/22 04:00 Ordered CBC W DIFF DAILY Lab 10/11/22 04:00 Ordered CBC W DIFF DAILY Lab 10/12/22 04:00 Ordered CBC W DIFF DAILY Lab 10/13/22 04:00 Ordered POCT GLUCOSE Stat Lab 10/07/22 07:35 Completed POCT GLUCOSE Stat Lab 10/07/22 11:39 Completed POCT GLUCOSE Stat Lab 10/07/22 15:43 Completed POCT GLUCOSE Stat Lab 10/07/22 21:33 Completed POCT GLUCOSE Stat Lab 10/08/22 06:31 Completed POCT GLUCOSE Stat Lab 10/08/22 06:31 Received Vancomycin, Trough Urgent Lab 10/08/22 05:32 Completed Hydrocodone/APAP 5/325 [[place] 5/325 mg] Med 10/07/22 10:47 Active 1 tab PO Q4H PRN PRN Therapuetic Drug Level Monitor [Trough Drug Levels] Med 10/08/22 05:30 Discontinued 1 IJ 1XONLY ONE Patient Care Notes (Last 24 hours) 10/07/22 10:47 Nursing Note by Pilar Coreas ROUNDED ON PATIENT WITH DR. GARCIA. RECEIVED THE FOLLOWING ORDERS: NORCO 5/325MG PO Q 4 H PRN FOR PAIN. Initialized on 10/07/22 10:47 - END OF NOTE Code(s): M86.9 - OSTEOMYELITIS, UNSPECIFIED (2) Cellulitis of foot associated with diabetes mellitus Current Visit: Yes Status: Acute Assessment & Plan: Chief Complaint Diagnosis DIABETIC FOOT INFECTION Allergies Allergy/AdvReac Type Severity Reaction Status Date / Time No Known Drug Allergies Allergy Verified 10/04/22 23:06 Vital Signs (Last 24 hours) Temp Pulse Resp BP Pulse Ox 10/08/22 07:10 98.7 F 75 16 161/89 95 10/08/22 03:52 97.8 F 88 18 171/84 95 10/08/22 00:00 97.3 F 83 18 156/80 95 10/07/22 19:56 98.0 F 84 18 135/71 95 10/07/22 16:00 97.3 F 85 19 159/80 96 10/07/22 11:48 97.5 F 85 19 185/99 95 Home Medications Medication Instructions Recorded Confirmed Last Taken Type Aspirin EC 81 mg [Ecotrin 81 1 tab PO DAILY 10/04/22 10/04/22 10/04/22 14:00 History mg] Empagliflozin [Jardiance] 25 mg PO DAILY 10/04/22 10/04/22 10/04/22 14:00 History Escitalopram Oxalate 10 mg PO DAILY 10/04/22 10/04/22 10/04/22 14:00 History Insulin Glargine,Hum.rec.anlog 40 units SQ BID 10/04/22 10/04/22 10/04/22 22:00 History [Insulin Glargine] Losartan Potassium [Cozaar] 25 mg PO DAILY 10/04/22 10/04/22 10/04/22 14:00 History Metformin HCl 500 mg 1 tab PO BID 10/04/22 10/04/22 10/04/22 22:00 History [Glucophage 500 MG] Current Medications Generic Name Dose Route Start Last Admin Trade Name Freq PRN Reason Stop Dose Admin Hydrocodone Bitart/Acetaminophen 1 tab 10/07/22 10:47 10/08/22 05:40 Hydrocodone/Apap 5/325 1 Tab Tablet PO 10/12/22 10:46 1 tab Q4H PRN PRN Administration PAIN Amlodipine Besylate 10 mg 10/05/22 10:00 10/07/22 10:59 Amlodipine Besylate 5 Mg Tablet PO 11/04/22 09:59 10 mg QAM ASHLIE Administration Empagliflozin 25 mg 10/05/22 10:00 10/07/22 11:00 Empagliflozin 10 Mg Tablet PO 11/04/22 09:59 25 mg DAILY ASHLIE Administration Escitalopram Oxalate 10 mg 10/05/22 10:00 10/07/22 10:59 Escitalopram Oxalate 10 Mg Tablet PO 11/04/22 09:59 10 mg DAILY ASHLIE Administration Furosemide 20 mg 10/05/22 10:00 10/07/22 10:59 Furosemide 20 Mg Tablet PO 11/04/22 09:59 20 mg DAILY ASHLIE Administration Piperacillin Sod/Tazobactam 100 mls @ 200 mls/hr 10/05/22 06:00 10/08/22 05:33 Sod 3.375 gm/ Sodium Chloride IV 10/09/22 05:59 200 mls/hr Q6HT ASHLIE Administration Vancomycin HCl 2 gm in 400 mls @ 200 mls/hr 10/07/22 06:00 10/08/22 07:23 Vancomycin 2 Gram/400 Ml Bag IV 11/06/22 05:59 200 mls/hr Q12H ASHLIE Administration Insulin Glargine 10 unit 10/05/22 10:00 10/07/22 11:00 Insulin Glargine 1 Unit SQ 11/04/22 09:59 10 unit DAILY ASHLIE Administration Insulin Human Lispro 0 unit 10/05/22 02:27 10/07/22 22:10 Insulin Lispro 1 Unit SQ 11/04/22 02:26 3 unit UD PRN Administration HYPERGLYCEMIA Losartan Potassium 50 mg 10/06/22 08:51 10/07/22 11:00 Losartan Potassium 50 Mg Tablet PO 11/04/22 09:59 50 mg DAILY ASHLIE Administration Morphine Sulfate 4 mg 10/05/22 02:27 10/08/22 03:01 Morphine Sulfate 4 Mg/Ml Injection IV 10/10/22 02:26 4 mg Q4H PRN PRN Administration PAIN Ondansetron HCl 4 mg 10/05/22 02:27 Ondansetron Hcl 4 Mg/2 Ml Vial IV 11/04/22 02:26 Q6H PRN PRN NAUSEA/VOMITING Pantoprazole Sodium 40 mg 10/05/22 10:00 10/07/22 11:00 Pantoprazole 40 Mg Vial IV 11/04/22 09:59 40 mg Q24H10 ASHLIE Administration Potassium Chloride 20 meq 10/05/22 10:00 10/07/22 10:59 Potassium Chloride Tab 10 Meq Tab PO 11/04/22 09:59 20 meq DAILY ASHLIE Administration Simvastatin 20 mg 10/06/22 10:00 10/07/22 10:59 Simvastatin 20 Mg Tablet PO 11/05/22 09:59 20 mg DAILY ASHLIE Administration Discontinued Medications Generic Name Dose Route Start Last Admin Trade Name Freq PRN Reason Stop Dose Admin Albuterol/Ipratropium 3 ml 10/05/22 02:27 Ipratropium/Albuterol Sulfate 3 Ml Ampul.Neb IH 11/04/22 02:26 Q4HPRN PRN SHORTNESS OF BREATH/WHEEZING Bupivacaine HCl Confirm 10/05/22 10:46 Bupivacaine Hcl/Pf 150 Mg/30 Ml Vial Administered 10/05/22 10:47 Dose 150 mg .ROUTE .STK-MED ONE Device 1 10/06/22 07:30 10/06/22 09:15 Therapuetic Drug Level Monitor Each IJ 10/06/22 07:31 1 1XONLY ONE Administration Device 1 10/08/22 05:30 Therapuetic Drug Level Monitor Each IJ 10/08/22 05:31 1XONLY ONE Sodium Chloride 1,000 mls @ 999 mls/hr 10/04/22:03 10/05/22 00:48 Sodium Chloride 0.9% 1000 Ml IV 10/05/22 00:03 Infused .Q1H1M STA Infusion Piperacillin Sod/Tazobactam 100 mls @ 200 mls/hr 10/04/22 23:04 10/04/22 23:34 Sod 3.375 gm/ Sodium Chloride IV 10/04/22 23:33 200 mls/hr STAT ONE Administration Vancomycin HCl 2 gm in 400 mls @ 133.333 mls/hr 10/04/22 23:05 10/05/22 00:18 Vancomycin 2 Gram/400 Ml Bag IV 10/05/22 02:04 133.33 mls/hr STAT ONE 133.33 mls/hr Administration Sodium Chloride Confirm 10/04/22 23:32 Sodium Chloride 0.9% 1000 Ml Administered 10/04/22 23:33 Dose 1,000 mls @ ud .ROUTE .STK-MED ONE Sodium Chloride Confirm 10/04/22 23:33 Sodium Chloride 100ml Mini-Bag Plus Administered 10/04/22 23:34 Dose 100 mls @ ud IV .STK-MED ONE Vancomycin HCl Confirm 10/04/22 23:46 Vancomycin 2 Gram/400 Ml Bag Administered 10/04/22 23:47 Dose 2 gm in 400 mls @ ud IV .STK-MED ONE Sodium Chloride 1,000 mls @ 50 mls/hr 10/05/22 01:00 10/05/22 23:03 Sodium Chloride 0.9% 1000 Ml IV 11/04/22 00:59 125 mls/hr .Q20H ASHLIE Administration Vancomycin HCl 1 gm/ Sodium 250 mls @ 125 mls/hr 10/05/22 02:27 10/05/22 03:55 Chloride IV 11/04/22 02:26 Not Given Q12H ASHLIE Sodium Chloride Confirm 10/05/22 05:10 Sodium Chloride 100ml Mini-Bag Plus Administered 10/05/22 05:11 Dose 100 mls @ ud IV .STK-MED ONE Vancomycin HCl 1.5 gm in 300 mls @ 150 mls/hr 10/05/22 08:00 10/06/22 16:01 Vancomycin 1.5 Gram/300 Ml Bag IV 10/07/22 13:00 150 mls/hr Q8H ASHLIE Administration Vancomycin HCl 500 mg/ Sodium 100 mls @ 100 mls/hr 10/06/22 17:00 10/06/22 18:15 Chloride IV 10/06/22 17:59 100 mls/hr ONCE ONE Administration Insulin Human Regular 12 unit 10/05/22 00:46 10/05/22 00:52 Insulin Regular, Human 1 Unit IV 10/05/22 00:47 12 unit STAT ONE Administration Insulin Human Regular Confirm 10/05/22 00:51 Insulin Regular, Human 1 Unit Administered 10/05/22 00:52 Dose 12 unit .ROUTE .STK-MED ONE Labetalol HCl 10 mg 10/05/22 00:40 10/05/22 00:54 Labetalol Hcl 20 Mg/4 Ml Disp.Syringe IV 10/05/22 00:41 10 mg STAT ONE Administration Labetalol HCl Confirm 10/05/22 00:52 Labetalol Hcl 20 Mg/4 Ml Disp.Syringe Administered 10/05/22 00:53 Dose 20 mg IV .STK-MED ONE Lidocaine HCl Confirm 10/05/22 10:46 Lidocaine Hcl/Pf 1 % 30 Ml Pf Sdv Administered 10/05/22 10:47 Dose 30 ml IJ .STK-MED ONE Losartan Potassium 25 mg 10/05/22 10:00 10/05/22 12:56 Losartan Potassium 50 Mg Tablet PO 11/04/22 09:59 25 mg DAILY ASHLIE Administration Morphine Sulfate 4 mg 10/05/22 00:46 10/05/22 00:53 Morphine Sulfate 4 Mg/Ml Injection IV 10/05/22 00:47 4 mg STAT ONE Administration Morphine Sulfate Confirm 10/05/22 00:51 Morphine Sulfate 4 Mg/Ml Injection Administered 10/05/22 00:52 Dose 4 mg .ROUTE .STK-MED ONE Ondansetron HCl 4 mg 10/05/22 00:46 10/05/22 00:53 Ondansetron Hcl 4 Mg/2 Ml Vial IV 10/05/22 00:47 4 mg STAT ONE Administration Ondansetron HCl Confirm 10/05/22 00:50 Ondansetron Hcl 4 Mg/2 Ml Vial Administered 10/05/22 00:51 Dose 4 mg .ROUTE .STK-MED ONE Piperacillin Sod/Tazobactam Sod Confirm 10/04/22 23:32 Piperacillin/Tazobactam Sodium 3.375 Gm Vial Administered 10/04/22 23:33 Dose 3.375 gm IV .STK-MED ONE Piperacillin Sod/Tazobactam Sod Confirm 10/05/22 05:10 Piperacillin/Tazobactam Sodium 3.375 Gm Vial Administered 10/05/22 05:11 Dose 3.375 gm IV .STK-MED ONE Intake & Output (Last 24 hours) 10/05/22 10/06/22 10/07/22 10/08/22 11:59 11:59 11:59 11:59 Intake Total 0 4419 3383 2196 Output Total 450 2600 2500 2725 Balance -450 1819 883 -529 Weight 98.9 kg 98.8 kg 99.9 kg Microbiology Results (Last 24 hours) 10/05/22 12:56 Bone - Not Known Anaerobic Culture - Pending 10/05/22 12:56 Bone - Not Known Tissue Culture - Pending 10/05/22 12:55 Toe - L Third Anaerobic Culture - Pending 10/05/22 12:55 Toe - L Third Tissue Culture - Pending 10/05/22 12:53 Toe - L Second Anaerobic Culture - Pending 10/05/22 12:53 Toe - L Second Tissue Culture - Pending Laboratory Results (Last 24 hours) 10/08/22 10/08/22 10/08/22 06:31 05:32 05:32 WBC RBC Hgb Hct MCV MCH MCHC RDW Plt Count MPV Gran % Immature Gran % (Auto) Nucleat RBC Rel Count Eos # (Auto) Immature Gran # (Auto) Absolute Lymphs (auto) Absolute Monos (auto) Absolute Nucleated RBC Lymphocytes % Monocytes % Eosinophils % Basophils % Absolute Granulocytes Basophils # Sodium 135 L Potassium 4.0 Chloride 104 Carbon Dioxide 30 Anion Gap 5.9 BUN 18 Creatinine 0.68 Estimated GFR > 60.0 Glucose 115 H POC Glucometer 111 H Calcium 7.9 L Vancomycin Trough 20.47 H 10/08/22 10/07/22 10/07/22 05:32 21:33 15:43 WBC 6.8 RBC 4.78 Hgb 12.6 Hct 38.4 L MCV 80.3 MCH 26.4 MCHC 32.8 RDW 13.4 Plt Count 283 MPV 9.5 Gran % 55.0 Immature Gran % (Auto) 0.6 H Nucleat RBC Rel Count 0.0 Eos # (Auto) 0.23 Immature Gran # (Auto) 0.04 H Absolute Lymphs (auto) 2.19 Absolute Monos (auto) 0.56 Absolute Nucleated RBC 0.00 Lymphocytes % 32.1 Monocytes % 8.2 Eosinophils % 3.4 Basophils % 0.7 Absolute Granulocytes 3.75 Basophils # 0.05 Sodium Potassium Chloride Carbon Dioxide Anion Gap BUN Creatinine Estimated GFR Glucose POC Glucometer 185 H 309 H Calcium Vancomycin Trough 10/07/22 11:39 WBC RBC Hgb Hct MCV MCH MCHC RDW Plt Count MPV Gran % Immature Gran % (Auto) Nucleat RBC Rel Count Eos # (Auto) Immature Gran # (Auto) Absolute Lymphs (auto) Absolute Monos (auto) Absolute Nucleated RBC Lymphocytes % Monocytes % Eosinophils % Basophils % Absolute Granulocytes Basophils # Sodium Potassium Chloride Carbon Dioxide Anion Gap BUN Creatinine Estimated GFR Glucose POC Glucometer 197 H Calcium Vancomycin Trough Orders (Last 24 hours) Category Date Time Status BMP DAILY Lab 10/08/22 05:32 Completed BMP DAILY Lab 10/09/22 04:00 Ordered BMP DAILY Lab 10/10/22 04:00 Ordered BMP DAILY Lab 10/11/22 04:00 Ordered BMP DAILY Lab 10/12/22 04:00 Ordered BMP DAILY Lab 10/13/22 04:00 Ordered CBC W DIFF DAILY Lab 10/08/22 05:32 Completed CBC W DIFF DAILY Lab 10/09/22 04:00 Ordered CBC W DIFF DAILY Lab 10/10/22 04:00 Ordered CBC W DIFF DAILY Lab 10/11/22 04:00 Ordered CBC W DIFF DAILY Lab 10/12/22 04:00 Ordered CBC W DIFF DAILY Lab 10/13/22 04:00 Ordered POCT GLUCOSE Stat Lab 10/07/22 07:35 Completed POCT GLUCOSE Stat Lab 10/07/22 11:39 Completed POCT GLUCOSE Stat Lab 10/07/22 15:43 Completed POCT GLUCOSE Stat Lab 10/07/22 21:33 Completed POCT GLUCOSE Stat Lab 10/08/22 06:31 Completed POCT GLUCOSE Stat Lab 10/08/22 06:31 Received Vancomycin, Trough Urgent Lab 10/08/22 05:32 Completed Hydrocodone/APAP 5/325 [[place] 5/325 mg] Med 10/07/22 10:47 Active 1 tab PO Q4H PRN PRN Therapuetic Drug Level Monitor [Trough Drug Levels] Med 10/08/22 05:30 Discontinued 1 IJ [id number] ONE Patient Care Notes (Last 24 hours) 10/07/22 10:47 Nursing Note by Pilar Coreas ROUNDED ON PATIENT WITH DR. GARCIA. RECEIVED THE FOLLOWING ORDERS: [place] 5/325MG PO Q 4 H PRN FOR PAIN. Initialized on 10/07/22 10:47 - END OF NOTE Code(s): E11.628 - TYPE 2 DIABETES MELLITUS WITH OTHER SKIN COMPLICATIONS; L03.119 - CELLULITIS OF UNSPECIFIED PART OF LIMB (3) Cardiomyopathy Current Visit: Yes Status: Acute Qualifiers: Cardiomyopathy type: unspecified Qualified Code(s): I42.9 - Cardiomyopathy, unspecified Code(s): I42.9 - CARDIOMYOPATHY, UNSPECIFIED (4) Diabetic foot infection Current Visit: Yes Status: Acute Code(s): E11.628 - TYPE 2 DIABETES MELLITUS WITH OTHER SKIN COMPLICATIONS; L08.9 - LOCAL INFECTION OF THE SKIN AND SUBCUTAN EOUS TISSUE, UNSP
--- NOTE | 2022-10-08 08:25 | PCM.NOTE ---
Date and Time: 10/08/22824 Subjective Assessment: POD#3/ Lethargic. Complaints of pain. No other pedal complaints noted. Physical Exam - Narrative Narrative Physical Exam: Podiatry Physical Exam OBJECTIVE DATA Vital Signs: Vital Signs - 24 hr Temp Pulse Resp BP Pulse Ox 10/08/22 07:10 98.7 F 75 16 161/89 95 10/08/22 03:52 97.8 F 88 18 171/84 95 10/08/22 00:00 97.3 F 83 18 156/80 95 10/07/22 19:56 98.0 F 84 18 135/71 95 10/07/22 16:00 97.3 F 85 19 159/80 96 10/07/22 11:48 97.5 F 85 19 185/99 95 Pain Assessment - Last Documented Pain Intensity 7 Pain Scale Used 0-10 Pain Scale Intake and Output: Intake & Output 10/05/22 10/06/22 10/07/22 10/08/22 11:59 11:59 11:59 11:59 Intake Total 0 4419 3383 2196 Output Total 450 2600 2500 2725 Balance -450 1819 883 -529 Weight 98.9 kg 98.8 kg 99.9 kg Lab Results: Lab Results-Last 24 Hours 10/07/22 10/07/22 10/07/22 Range/Units 11:39 15:43 21:33 WBC (4.0-10.5) x10^3/uL RBC (4.1-5.6) x10^6/uL Hgb (12.5-18.0) g/dL Hct (42-50) % MCV (78-100) fL MCH (26-32) pg MCHC (32-36) g/dL RDW (11.5-14.0) % Plt Count (150-450) x10^3/uL MPV (7.5-11.0) fL Gran % (36.0-66.0) % Immature Gran % (Auto) (0.00-0.4) % Nucleat RBC Rel Count (0.00-0.1) % Eos # (Auto) (0-0.5) x10^3/uL Immature Gran # (Auto) (0.00-0.03) x10^3u/L Absolute Lymphs (auto) (1.0-4.6) x10^3/uL Absolute Monos (auto) (0.0-1.3) x10^3/uL Absolute Nucleated RBC (0.00-0.01) x10^3u/L Lymphocytes % (24.0-44.0) % Monocytes % (0.0-12.0) % Eosinophils % (0.00-5.0) % Basophils % (0.0-0.4) % Absolute Granulocytes (1.4-6.9) x10^3/uL Basophils # (0-0.4) x10^3/uL Sodium (137-145) mmol/L Potassium (3.5-5.1) mmol/L Chloride (98-107) mmol/L Carbon Dioxide (22-30) mmol/L Anion Gap (5-15) MEQ/L BUN (9-20) mg/dL Creatinine (0.66-1.25) mg/dL Estimated GFR ML/MIN Glucose (74-106) mg/dL POC Glucometer 197 H 309 H 185 H (74 to 106) mg/dL Calcium (8.4-10.2) mg/dL Vancomycin Trough (10-20) ug/mL 10/08/22 10/08/22 10/08/22 Range/Units 05:32 05:32 05:32 WBC 6.8 (4.0-10.5) x10^3/uL RBC 4.78 (4.1-5.6) x10^6/uL Hgb 12.6 (12.5-18.0) g/dL Hct 38.4 L (42-50) % MCV 80.3 (78-100) fL MCH 26.4 (26-32) pg MCHC 32.8 (32-36) g/dL RDW 13.4 (11.5-14.0) % Plt Count 283 (150-450) x10^3/uL MPV 9.5 (7.5-11.0) fL Gran % 55.0 (36.0-66.0) % Immature Gran % (Auto) 0.6 H (0.00-0.4) % Nucleat RBC Rel Count 0.0 (0.00-0.1) % Eos # (Auto) 0.23 (0-0.5) x10^3/uL Immature Gran # (Auto) 0.04 H (0.00-0.03) x10^3u/L Absolute Lymphs (auto) 2.19 (1.0-4.6) x10^3/uL Absolute Monos (auto) 0.56 (0.0-1.3) x10^3/uL Absolute Nucleated RBC 0.00 (0.00-0.01) x10^3u/L Lymphocytes % 32.1 (24.0-44.0) % Monocytes % 8.2 (0.0-12.0) % Eosinophils % 3.4 (0.00-5.0) % Basophils % 0.7 (0.0-0.4) % Absolute Granulocytes 3.75 (1.4-6.9) x10^3/uL Basophils # 0.05 (0-0.4) x10^3/uL Sodium 135 L (137-145) mmol/L Potassium 4.0 (3.5-5.1) mmol/L Chloride 104 (98-107) mmol/L Carbon Dioxide 30 (22-30) mmol/L Anion Gap 5.9 (5-15) MEQ/L BUN 18 (9-20) mg/dL Creatinine 0.68 (0.66-1.25) mg/dL Estimated GFR > 60.0 ML/MIN Glucose 115 H (74-106) mg/dL POC Glucometer (74 to 106) mg/dL Calcium 7.9 L (8.4-10.2) mg/dL Vancomycin Trough 20.47 H (10-20) ug/mL 10/08/22 Range/Units 06:31 WBC (4.0-10.5) x10^3/uL RBC (4.1-5.6) x10^6/uL Hgb (12.5-18.0) g/dL Hct (42-50) % MCV (78-100) fL MCH (26-32) pg MCHC (32-36) g/dL RDW (11.5-14.0) % Plt Count (150-450) x10^3/uL MPV (7.5-11.0) fL Gran % (36.0-66.0) % Immature Gran % (Auto) (0.00-0.4) % Nucleat RBC Rel Count (0.00-0.1) % Eos # (Auto) (0-0.5) x10^3/uL Immature Gran # (Auto) (0.00-0.03) x10^3u/L Absolute Lymphs (auto) (1.0-4.6) x10^3/uL Absolute Monos (auto) (0.0-1.3) x10^3/uL Absolute Nucleated RBC (0.00-0.01) x10^3u/L Lymphocytes % (24.0-44.0) % Monocytes % (0.0-12.0) % Eosinophils % (0.00-5.0) % Basophils % (0.0-0.4) % Absolute Granulocytes (1.4-6.9) x10^3/uL Basophils # (0-0.4) x10^3/uL Sodium (137-145) mmol/L Potassium (3.5-5.1) mmol/L Chloride (98-107) mmol/L Carbon Dioxide (22-30) mmol/L Anion Gap (5-15) MEQ/L BUN (9-20) mg/dL Creatinine (0.66-1.25) mg/dL Estimated GFR ML/MIN Glucose (74-106) mg/dL POC Glucometer 111 H (74 to 106) mg/dL Calcium (8.4-10.2) mg/dL Vancomycin Trough (10-20) ug/mL Assessment/Plan (1) Osteomyelitis due to type 2 diabetes mellitus Current Visit: Yes Status: Acute Assessment & Plan: Progressing without complication Dressings changed revealing relatively healthy tissue. Some maceration but no obvious infection Will plan to proceed with Repeat bone debridement with delayed primary closure on Sunday with plan for discharge shortly after If approved recommend retirement for IV abx and maintaining nonweight bearing status Due to patients IV drug use hold PICC line until dc to nursing facility confirmed Will base IV regimen on Cultures and Sensitivity. No preliminary available at this time. continue pain prophy continue non weight bearing to operative extremity. Continue DVT prophy. Will follow closely. Code(s): E11.69 - TYPE 2 DIABETES MELLITUS WITH OTHER SPECIFIED COMPLICATION; M86.9 - OSTEOMYELITIS, UNSPECIFIED (2) Ejection fraction < 50% Current Visit: Yes Status: Acute Code(s): R94.30 - ABNORMAL RESULT OF CARDIOVASCULAR FUNCTION STUDY, UNSP (3) Cellulitis of toe of left foot Current Visit: No Status: Acute Code(s): L03.032 - CELLULITIS OF LEFT TOE (4) Cellulitis of foot associated with diabetes mellitus Current Visit: Yes Status: Acute Code(s): E11.628 - TYPE 2 DIABETES MELLITUS WITH OTHER SKIN COMPLICATIONS; L03.119 - CELLULITIS OF UNSPECIFIED PART OF LIMB (5) Diabetic foot infection Current Visit: Yes Status: Acute Code(s): E11.628 - TYPE 2 DIABETES MELLITUS WITH OTHER SKIN COMPLICATIONS; L08.9 - LOCAL INFECTION OF THE SKIN AND SUBCUTANEOUS TISSUE, UNSP (6) Type 2 diabetes, uncontrolled, with cellulitis of foot Current Visit: Yes Status: Acute Code(s): [id number] -
[2022-10-08] MEDS: HUMALOG SQ PRN ×3 (08:50→22:32)
[2022-10-08] MEDS: PROTONIX 40 MG IV IV SCH (09:50)
[2022-10-08] MEDS: Lantus Insulin SQ SCH (09:50)
[2022-10-08] MEDS: NORVASC 5 MG PO SCH (09:51)
[2022-10-08] MEDS: Lexapro PO SCH (09:51)
[2022-10-08] MEDS: ZOCOR 20MG PO SCH (09:52)
[2022-10-08] MEDS: Klor Con PO SCH (09:52)
[2022-10-08] MEDS: Cozaar 50 MG PO SCH (09:52)
[2022-10-08] MEDS: LASIX 20 MG PO SCH (09:52)
[2022-10-08] MEDS: JARDIANCE PO SCH (09:53)
[2022-10-08] MEDS: VANCOMYCIN 1.5 GRAM/300 ML BAG 1.5 GM/300 ML PIGGYBACK IV SCH (22:32)
[2022-10-09] MEDS: NORCO 5/325 MG PO PRN ×2 (00:38→09:12)
[2022-10-09] MEDS: MORPHINE SULFATE 4 MG INJ IV PRN ×2 (03:34→19:41)
[2022-10-09 04:44] LABS: Absolute Neutrophil Ct (ANC) 4.82 x10^3/uL (1.4-6.9); BASOPHIL % 0.6 % (0.0-0.4); Basophil (Absolute #) 0.05 x10^3/uL (0-0.4); Eosinophil % 2.8 % (0.00-5.0); Eosinophil (Absolute #) 0.23 x10^3/uL (0-0.5); Hematocrit 37.3 % (42-50); IMMATURE GRAN # 0.06 x10^3u/L (0.00-0.03); IMMATURE GRAN % 0.7 % (0.00-0.4); Lymphocyte (Absolute #) 2.33 x10^3/uL (1.0-4.6); Lymphocytes % 28.7 % (24.0-44.0); Mean Cell Volume 80.7 fL (78-100); Mean Corpuscular Hgb Concent. 32.2 g/dL (32-36); Mean Platelet Volume 9.4 fL (7.5-11.0); Monocyte (Absolute #) 0.64 x10^3/uL (0.0-1.3); Monocytes % 7.9 % (0.0-12.0); Neutrophil % 59.3 % (36.0-66.0); Platelet Count 291 x10^3/uL (150-450); Red Blood Count 4.62 x10^6/uL (4.1-5.6); Red Cell Distribution Width 13.3 % (11.5-14.0); White Blood Count 8.1 x10^3/uL (4.0-10.5)
[2022-10-09 05:09] LABS: BLOOD UREA NITROGEN 18 mg/dL (9-20); CHLORIDE 103 mmol/L (98-107); Calcium 7.9 mg/dL (8.4-10.2); Carbon Dioxide 31 mmol/L (22-30); Creatinine 1 0.74 mg/dL (0.66-1.25); EST GLOMERULAR FILTRATION RATE > 60.0 ML/MIN; Glucose 124 mg/dL (74-106); Potassium 3.8 mmol/L (3.5-5.1); SODIUM 138 mmol/L (137-145)
[2022-10-09] MEDS: PIPERACILLIN/TAZOBACTAM 3.375 GM in Sodium Chloride 100ML MINI-BAG PLUS 100 ML IV SCH ×4 (05:43→23:38)
[2022-10-09] MEDS: HUMALOG SQ PRN ×3 (08:33→21:25)
--- NOTE | 2022-10-09 08:45 | PCM.NOTE ---
Date and Time: 10/09/22 0840 Subjective Assessment: patient is doing well at this time, no voiced problems or concerns. dressing intact to left foot Objective Exam General Appearance: no apparent distress Neurologic Exam: alert, oriented x 3 Wound Assessment: Skin/Wound Assessment Wound/Incision Assessment Start: 10/05/22 03:25 Text: Status: Active Freq: Q12H Protocol: Document 10/08/22 20:00 (Rec: 10/09/22 00:50 [id number]) Wound/Incision Assessment Right Foot Wound Assessment Shift Assessment Wound Stage Unstageable Dressing Status Dry & Intact Drainage Amount None Comment unable to visualize. changed dressing on 10/07/22 day shift, dressing is clean, dry and intact rt third toe Wound Assessment Shift Assessment Drainage Amount None Left Thigh Length (cm) (cm) 0.8 fourth toe Wound Assessment Shift Assessment Wound Stage Unstageable Left Toe Wound Assessment Shift Assessment Wound Type Amputation Comment dressing cdi Wound Photo Photo Taken Yes Comment: SEE PICTURES IN CHART Respiratory Exam: normal breath sounds, lungs clear, No respiratory distress Cardiovascular Exam: regular rate/rhythm, normal heart sounds Gastrointestinal/Abdomen Exam: soft, No tenderness, No mass Extremity Exam: other (dressing intact to left foot) OBJECTIVE DATA Vital Signs: Vital Signs - 24 hr Temp Pulse Resp BP Pulse Ox 10/09/22 07:29 97.7 F 73 17 153/88 97 10/09/22 04:00 97.8 F 83 20 151/68 95 10/09/22 00:00 97.8 F 83 20 151/68 95 10/08/22 20:00 97.9 F 88 20 139/65 97 10/08/22 16:00 98.3 F 89 16 144/71 93 L 10/08/22 12:00 98.6 F 78 16 168/92 99 Pain Assessment - Last Documented Pain Intensity 0 [facility] Intake and Output: Intake & Output 10/06/22 10/07/22 10/08/22 10/09/22 11:59 11:59 11:59 11:59 Intake Total 4419 3383 2436 2020 Output Total 2600 6009 2725 3375 Balance 1819 126 -196 -1548 Weight 98.8 kg 99.9 kg 99.9 kg Lab Results: Lab Results-Last 24 Hours 10/08/22 10/08/22 10/08/22 Range/Units 11:24 15:40 21:19 WBC (4.0-10.5) x10^3/uL RBC (4.1-5.6) x10^6/uL Hgb (12.5-18.0) g/dL Hct (42-50) % MCV (78-100) fL MCH (26-32) pg MCHC (32-36) g/dL RDW (11.5-14.0) % Plt Count (150-450) x10^3/uL MPV (7.5-11.0) fL Gran % (36.0-66.0) % Immature Gran % (Auto) (0.00-0.4) % Nucleat RBC Rel Count (0.00-0.1) % Eos # (Auto) (0-0.5) x10^3/uL Immature Gran # (Auto) (0.00-0.03) x10^3u/L Absolute Lymphs (auto) (1.0-4.6) x10^3/uL Absolute Monos (auto) (0.0-1.3) x10^3/uL Absolute Nucleated RBC (0.00-0.01) x10^3u/L Lymphocytes % (24.0-44.0) % Monocytes % (0.0-12.0) % Eosinophils % (0.00-5.0) % Basophils % (0.0-0.4) % Absolute Granulocytes (1.4-6.9) x10^3/uL Basophils # (0-0.4) x10^3/uL Sodium (137-145) mmol/L Potassium (3.5-5.1) mmol/L Chloride (98-107) mmol/L Carbon Dioxide (22-30) mmol/L Anion Gap (5-15) MEQ/L BUN (9-20) mg/dL Creatinine (0.66-1.25) mg/dL Estimated GFR ML/MIN Glucose (74-106) mg/dL POC Glucometer 119 H 236 H 273 H (74 to 106) mg/dL Calcium (8.4-10.2) mg/dL 10/09/22 10/09/22 10/09/22 Range/Units 04:25 04:25 07:13 WBC 8.1 (4.0-10.5) x10^3/uL RBC 4.62 (4.1-5.6) x10^6/uL Hgb 12.0 L (12.5-18.0) g/dL Hct 37.3 L (42-50) % MCV 80.7 (78-100) fL MCH 26.0 (26-32) pg MCHC 32.2 (32-36) g/dL RDW 13.3 (11.5-14.0) % Plt Count 291 (150-450) x10^3/uL MPV 9.4 (7.5-11.0) fL Gran % 59.3 (36.0-66.0) % Immature Gran % (Auto) 0.7 H (0.00-0.4) % Nucleat RBC Rel Count 0.0 (0.00-0.1) % Eos # (Auto) 0.23 (0-0.5) x10^3/uL Immature Gran # (Auto) 0.06 H (0.00-0.03) x10^3u/L Absolute Lymphs (auto) 2.33 (1.0-4.6) x10^3/uL Absolute Monos (auto) 0.64 (0.0-1.3) x10^3/uL Absolute Nucleated RBC 0.00 (0.00-0.01) x10^3u/L Lymphocytes % 28.7 (24.0-44.0) % Monocytes % 7.9 (0.0-12.0) % Eosinophils % 2.8 (0.00-5.0) % Basophils % 0.6 (0.0-0.4) % Absolute Granulocytes 4.82 (1.4-6.9) x10^3/uL Basophils # 0.05 (0-0.4) x10^3/uL Sodium 138 (137-145) mmol/L Potassium 3.8 (3.5-5.1) mmol/L Chloride 103 (98-107) mmol/L Carbon Dioxide 31 H (22-30) mmol/L Anion Gap 8.0 (5-15) MEQ/L BUN 18 (9-20) mg/dL Creatinine 0.74 (0.66-1.25) mg/dL Estimated GFR > 60.0 ML/MIN Glucose 124 H (74-106) mg/dL POC Glucometer 240 H (74 to 106) mg/dL Calcium 7.9 L (8.4-10.2) mg/dL Assessment/Plan (1) Diabetic foot infection Current Visit: Yes Status: Acute Assessment & Plan: tissue cultures pending from surgery last week, continue vanc/zosyn. per podiatry notes planning further bone debridement tomorrow possibly then to rehab for IV antibiotics and wound care. Code(s): E11.628 - TYPE 2 DIABETES MELLITUS WITH OTHER SKIN COMPLICATIONS; L08.9 - LOCAL INFECTION OF THE SKIN AND SUBCUTANEOUS TISSUE, UNSP (2) Cardiomyopathy Current Visit: Yes Status: Acute Qualifiers: Cardiomyopathy type: unspecified Qualified Code(s): I42.9 - Cardiomyopathy, unspecified Code(s): I42.9 - CARDIOMYOPATHY, UNSPECIFIED (3) Type 2 diabetes, uncontrolled, with cellulitis of foot Current Visit: Yes Status: Acute Code(s): EQR7029 - (4) Uncontrolled hypertension Current Visit: Yes Status: Acute Assessment & Plan: bp better controlled at this time Code(s): I10 - ESSENTIAL (PRIMARY) HYPERTENSION
[2022-10-09] MEDS: ZOCOR 20MG PO SCH (09:12)
[2022-10-09] MEDS: LASIX 20 MG PO SCH (09:12)
[2022-10-09] MEDS: Cozaar 50 MG PO SCH (09:12)
[2022-10-09] MEDS: PROTONIX 40 MG IV IV SCH (09:12)
[2022-10-09] MEDS: Klor Con PO SCH (09:12)
[2022-10-09] MEDS: NORVASC 5 MG PO SCH (09:13)
[2022-10-09] MEDS: JARDIANCE PO SCH (09:15)
[2022-10-09] MEDS: VANCOMYCIN 1.5 GRAM/300 ML BAG 1.5 GM/300 ML PIGGYBACK IV SCH ×2 (09:17→21:17)
[2022-10-09] MEDS: Lantus Insulin SQ SCH (09:17)
[2022-10-09] MEDS: Lexapro PO SCH (09:22)
[2022-10-09 10:31] LABS: INR 0.97 (0.8-3.0); PROTIME 10.6 SECONDS (9.4-12.5)
--- NOTE | 2022-10-09 13:27 | XRAY ---
Indication: Ultrasound guidance for PICC line placement. Initial sonographic imaging of the left upper extremity was performed for localization of patent veins. A patent basilic vein identified above the elbow. Ultrasound guidance was then used for PICC line insertion. Full PICC line insertion is reported separately.
--- NOTE | 2022-10-09 13:29 | XRAY ---
Indication: Long-term IV access and therapy for left foot infection/osteomyelitis. Informed consent obtained. Patient was placed on the fluoroscopic table in a supine position. Initial sonographic imaging of the right upper extremity was performed for localization of patent veins. The right upper extremity was then prepped and draped in sterile fashion. Tourniquet applied. 1% lidocaine plain used for local anesthesia. Using ultrasound guidance and a micropuncture needle, a basilic vein above the elbow was successfully percutaneously cannulized. A floppy tip 0.018 guidewire inserted. Tourniquet released. Needle was exchanged for a 5 [place] dilator peel-away sheath catheter. Ultimately a 5 [place] double-lumen PICC line was inserted over a longer 0.018 guidewire with the tip positioned in the distal SVC using fluoroscopic guidance. Guidewire removed. Both ports flushed with heparinized saline. Catheter was secured. Postoperative instructions and orders given. Patient discharged in good condition. Impression: Technically successful right upper extremity PICC line placement using ultrasound and fluoroscopic guidance. No immediate complications. Approximately 2 cc blood loss. Approximately 0.4 minute of fluoroscopy used. Catheter length is 37 cm.
[2022-10-10] MEDS: NORCO 5/325 MG PO PRN (04:26)
[2022-10-10 05:00] LABS: Absolute Neutrophil Ct (ANC) 5.02 x10^3/uL (1.4-6.9); BASOPHIL % 0.7 % (0.0-0.4); Basophil (Absolute #) 0.06 x10^3/uL (0-0.4); Eosinophil % 2.4 % (0.00-5.0); Hematocrit 38.8 % (42-50); Hemoglobin 12.9 g/dL (12.5-18.0); IMMATURE GRAN # 0.05 x10^3u/L (0.00-0.03); IMMATURE GRAN % 0.6 % (0.00-0.4); Lymphocyte (Absolute #) 2.34 x10^3/uL (1.0-4.6); Lymphocytes % 28.2 % (24.0-44.0); Mean Cell Volume 79.5 fL (78-100); Mean Corpuscular Hemoglobin 26.4 pg (26-32); Mean Corpuscular Hgb Concent. 33.2 g/dL (32-36); Mean Platelet Volume 9.7 fL (7.5-11.0); Monocyte (Absolute #) 0.62 x10^3/uL (0.0-1.3); Monocytes % 7.5 % (0.0-12.0); Neutrophil % 60.6 % (36.0-66.0); Platelet Count 306 x10^3/uL (150-450); Red Blood Count 4.88 x10^6/uL (4.1-5.6); Red Cell Distribution Width 13.5 % (11.5-14.0); White Blood Count 8.3 x10^3/uL (4.0-10.5)
[2022-10-10 05:33] LABS: ANION GAP 10.3 MEQ/L (5-15); BLOOD UREA NITROGEN 19 mg/dL (9-20); CHLORIDE 101 mmol/L (98-107); Calcium 8.2 mg/dL (8.4-10.2); Carbon Dioxide 28 mmol/L (22-30); Creatinine 1 0.61 mg/dL (0.66-1.25); EST GLOMERULAR FILTRATION RATE > 60.0 ML/MIN; Glucose 112 mg/dL (74-106); Potassium 3.8 mmol/L (3.5-5.1); SODIUM 136 mmol/L (137-145)
[2022-10-10] MEDS: PIPERACILLIN/TAZOBACTAM 3.375 GM in Sodium Chloride 100ML MINI-BAG PLUS 100 ML IV SCH ×2 (05:46→13:46)
[2022-10-10 07:14] VITALS: O2SAT 97
[2022-10-10] MEDS ORDERED: TROUGH DRUG LEVELS IJ ONE (09:30)
[2022-10-10] MEDS: VANCOMYCIN 1.5 GRAM/300 ML BAG 1.5 GM/300 ML PIGGYBACK IV SCH (10:24)
[2022-10-10] MEDS: PROTONIX 40 MG IV IV SCH (10:32)
[2022-10-10] MEDS: JARDIANCE PO SCH (10:36)
[2022-10-10] MEDS: Klor Con PO SCH (10:38)
[2022-10-10] MEDS: Cozaar 50 MG PO SCH (10:38)
[2022-10-10] MEDS: ZOCOR 20MG PO SCH (10:38)
[2022-10-10] MEDS: LASIX 20 MG PO SCH (10:39)
[2022-10-10] MEDS: Lantus Insulin SQ SCH (10:39)
[2022-10-10] MEDS: NORVASC 5 MG PO SCH (10:39)
[2022-10-10] MEDS: Lexapro PO SCH (10:39)
[2022-10-10 12:07] VITALS: BP 170/85; PULSE 70
[2022-10-10] MEDS ORDERED: Marcaine Mpf 0.5% Vial 30 Ml ONE (12:07)
[2022-10-10] MEDS ORDERED: Xylocaine 1% Vial 30 ML PF IJ ONE (12:07)
[2022-10-10] MEDS ORDERED: Ecotrin 325 MG PO SCH (12:43)
[2022-10-10] MEDS: HUMALOG SQ PRN (13:29)
--- NOTE | 2022-10-11 12:02 | OP ---
SURGERY DATE/TIME: 10/10/2022 1222 PREOPERATIVE DIAGNOSES: 1) Osteomyelitis left foot. 2) Uncontrolled diabetes. 3) Diabetic foot infection. 4) Ejection fraction of less than 25%. 5) Peripheral neuropathy. POSTOPERATIVE DIAGNOSES: 1) Osteomyelitis left foot. 2) Uncontrolled diabetes. 3) Diabetic foot infection. 4) Ejection fraction of less than 25%. 5) Peripheral neuropathy. PROCEDURE: Incision and drainage with bone debridement left foot with delayed primary closure second stage. SURGEON: Sergio Canchola DPM. TANKERMAN: None. HEMOSTASIS: Pressure dressing. ESTIMATED BLOOD LOSS: Less than 5 cc. MATERIALS: 3-0 Nylon, one Suturegard, 2-0 Nylon. ANESTHESIA: Local. INJECTABLES: 30 cc of a 1:1 mixture of 1% lidocaine plain and 0.5% bupivacaine plain injected in an ankle block-type fashion. INDICATION FOR SURGERY: This is a staged procedure. The patient presented with osteomyelitis with significant amount of purulent drainage to digits 2 and 3 on night last week. The patient set up for an amputation. The patient could not undergo anesthesia secondary to his poor health consisting of an ejection fraction of approximately 25%. We did this under local and because of the patient's neuropathy, he tolerated the procedure without complication. At this time we let the infection drain and clinically there does not appear to be any residual indications of infection. The patient states that he is feeling better. The patient does not have help at home and is a very uncontrolled diabetic. He has agreed to being placed in a nursing facility at this time. At this time the goal is to proceed with closure of the wound. However, he is extremely uncontrolled with an A1C above 14 and risk of nonhealing is relatively high given the patient's current medical picture. The patient understands all risks, complications and benefits of surgical intervention at this time including but not limited to infection, hematoma, seroma, possibility of delayed wound healing, nonwound healing and possible need for further amputation to a level more amenable for patient's function. It is with that we decided to proceed. DESCRIPTION OF PROCEDURE AND FINDINGS: The patient is brought into the OR and placed on the OR table in the supine position. At this time an aseptic block was performed at the level of the ankle until the patient was sedated. The left lower extremity was prepped and draped in the typical sterile fashion and lowered onto the surgical field. At this time the wound was explored and deemed to be free of any residual infection. Debridement of the soft tissue edges were deemed to be of healthy bleeding however no healing had taken place since the index procedure of stage 1. At this time the incision was deepened. The soft tissue planes were explored and a curette was utilized to debride the bone. At this time the wound was flushed and deemed to be clean. Closure was planned at this point. However, there was some significant tension at the second metatarsal head from the plantar stem. At this time a sagittal saw was utilized to resect out the second metatarsal head gaining better closure of the wound under initial inspection this was removed and sent for pathologic assessment and clean margins. At this time a Suturegard was introduced to the dorsal and plantar aspect of the incision. A vertical mattress-type suture was placed through it to get tension off of the skin edges and pull the skin flaps towards one another. Following this 3-0 Nylon was utilized in a horizontal mattress-type fashion to coapt the skin edges everting the skin edges. The final closure was deemed to be adequate at this time. Copious amounts of sterile saline were utilized to flush the surgical site. A dressing consisting of Betadine, Adaptic, 4x4, Kerlix and MARCE was then applied with minimal compression to the left lower extremity. The patient then was returned to his inpatient room with vital signs stable and vascular status intact. The patient handled the anesthesia as well as the procedure without significant complication. Postoperative orders as indicated in the patient's inpatient chart. He was set for discharge at this point.
== END 2022-10-10 15:05 | DRG 617 ==
LOC: ED 22:34 → MED SURG 10-05 02:21 → OBSVTOIN 10-05 09:04
PROVIDERS: ADMIT Internal Medicine; ATTEND Family Medicine
PROC: 0Y6S0Z0 Detachment at Left 2nd Toe, Complete, Open Approach (ICD-10-PCS; principal; 2022-10-05)
PROC: 0Y6U0Z0 Detachment at Left 3rd Toe, Complete, Open Approach (ICD-10-PCS; 2022-10-05)
PROC: 0J9R0ZZ Drainage of Left Foot Subcutaneous Tissue and Fascia, Open Approach (ICD-10-PCS; 2022-10-05)
PROC: 0J9R0ZZ Drainage of Left Foot Subcutaneous Tissue and Fascia, Open Approach (ICD-10-PCS; 2022-10-10)
DX: E11.621 Type 2 diabetes mellitus with foot ulcer (principal); I42.9 Cardiomyopathy, unspecified; M86.9 Osteomyelitis, unspecified; L03.032 Cellulitis of left toe; E11.69 Type 2 diabetes mellitus with other specified complication; R94.30 Abnormal result of cardiovascular function study, unspecified; E11.628 Type 2 diabetes mellitus with other skin complications; E11.42 Type 2 diabetes mellitus with diabetic polyneuropathy; L08.9 Local infection of the skin and subcutaneous tissue, unspecified; M79.672 Pain in left foot; I11.0 Hypertensive heart disease with heart failure; I50.9 Heart failure, unspecified; I25.10 Atherosclerotic heart disease of native coronary artery without angina pectoris; F19.90 Other psychoactive substance use, unspecified, uncomplicated; Z72.0 Tobacco use; Z79.899 Other long term (current) drug therapy; Z20.828 Contact with and (suspected) exposure to other viral communicable diseases
CPT/HCPCS: 13160; 28002; 28005; 28820; 36415; 36573; 71045; 73630; 76937; 77001; 80048; 80053; 80202; 82550; 82805; 82947; 83036; 83605; 83735; 84075; 85025; 85610; 85652; 85730; 87040; 87070; 87075; 93922; 93925; 96360; 96361; 96365; 96366; 96367; 96374; 96375; 99024; 99285; C1769; J1642; J1815; J1817; J2001; J2270; J2405; J3370; A9270-GY

== ENCOUNTER 2023-02-22 18:02 | Emergency (ER) | payer OTHER ==
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
[2023-02-22 18:25] VITALS: TEMP 97.3
[2023-02-22 19:24] VITALS: RESP 18
[2023-02-22 19:27] LABS: Absolute Neutrophil Ct (ANC) 5.22 x10^3/uL (1.4-6.9); BASOPHIL % 0.4 % (0.0-0.4); Basophil (Absolute #) 0.03 x10^3/uL (0-0.4); Eosinophil % 1.5 % (0.00-5.0); Eosinophil (Absolute #) 0.11 x10^3/uL (0-0.5); Hematocrit 40.9 % (42-50); Hemoglobin 13.7 g/dL (12.5-18.0); IMMATURE GRAN # 0.02 x10^3u/L (0.00-0.03); IMMATURE GRAN % 0.3 % (0.00-0.4); Lymphocyte (Absolute #) 1.65 x10^3/uL (1.0-4.6); Lymphocytes % 22.2 % (24.0-44.0); Mean Cell Volume 82.3 fL (78-100); Mean Corpuscular Hemoglobin 27.6 pg (26-32); Mean Corpuscular Hgb Concent. 33.5 g/dL (32-36); Mean Platelet Volume 10.9 fL (7.5-11.0); Monocytes % 5.4 % (0.0-12.0); Neutrophil % 70.2 % (36.0-66.0); Platelet Count 206 x10^3/uL (150-450); Red Blood Count 4.97 x10^6/uL (4.1-5.6); Red Cell Distribution Width 12.4 % (11.5-14.0); White Blood Count 7.4 x10^3/uL (4.0-10.5)
[2023-02-22 19:43] LABS: ALBUMIN 3.2 g/dL (3.5-5.0); ALKALINE PHOSPHATASE 146 U/L (38-126); ANION GAP 11.6 MEQ/L (5-15); BLOOD UREA NITROGEN 25 mg/dL (9-20); CHLORIDE 101 mmol/L (98-107); Calcium 8.5 mg/dL (8.4-10.2); Carbon Dioxide 27 mmol/L (22-30); EST GLOMERULAR FILTRATION RATE > 60.0 ML/MIN; Glucose 405 mg/dL (74-106); Potassium 4.2 mmol/L (3.5-5.1); SGOT/AST 22 U/L (17-59); SGPT/ALT 20 U/L (0-50); SODIUM 135 mmol/L (137-145); Total Protein 6.2 g/dL (6.3-8.2)
[2023-02-22] MEDS ORDERED: HUMULIN R IV ONE (20:21)
[2023-02-22] MEDS ORDERED: HYDROCODONE-ACETAMIN 10-325 MG PO STA (20:22)
[2023-02-22] MEDS ORDERED: Sodium Chloride 0.9% 500 ML 500 ML IV ONE ×2 (20:22→20:31)
[2023-02-22] MEDS ORDERED: HUMULIN R ONE (20:30)
[2023-02-22] MEDS ORDERED: HYDROCODONE-ACETAMIN 10-325 MG ONE (20:30)
[2023-02-22 20:31] LABS: Bacteria None Seen /HPF (None Seen); Epithelial Cells None Seen /HPF (None Seen); WBC 0-2 /HPF (0-5)
[2023-02-22 20:32] LABS: Appearance CLEAR (CLEAR); Bilirubin NEGATIVE (NEGATIVE); Glucose >=1000 mg/dL (NEGATIVE); Ketones NEGATIVE (NEGATIVE); Nitrite NEGATIVE (NEGATIVE); Ph 5.5 (5-6); Protein,Urine Dip >=300 (Negative); RBC TRACE-INTACT Ery/ul (0-5); Urobilinogen 0.2 mg/dL (0-1)
[2023-02-22 20:33] LABS: ADD URINE CULTURE? YES (NO)
[2023-02-22 20:46] LABS: Amphetamine,Urine NEGATIVE (NEGATIVE); Barbiturate,Urine NEGATIVE (NEGATIVE); Benzodiazepine,Urine NEGATIVE (NEGATIVE); Cocaine,Urine NEGATIVE (NEGATIVE); Methadone,Urine NEGATIVE (NEGATIVE); Opiate,Urine NEGATIVE (NEGATIVE); PCP,Urine NEGATIVE (NEGATIVE); THC,Urine NEGATIVE (NEGATIVE)
[2023-02-22 21:47] VITALS: BP 174/100; PULSE 78; O2SAT 98
== END 2023-02-22 21:59 | disposition home or self-care (01) ==
LOC: ED 18:02
DX: M79.604 Pain in right leg (principal); M79.605 Pain in left leg; E11.65 Type 2 diabetes mellitus with hyperglycemia; E11.42 Type 2 diabetes mellitus with diabetic polyneuropathy; E78.5 Hyperlipidemia, unspecified; I11.0 Hypertensive heart disease with heart failure; I50.9 Heart failure, unspecified; Z79.4 Long term (current) use of insulin; Z79.84 Long term (current) use of oral hypoglycemic drugs; Z79.899 Other long term (current) drug therapy; Z28.310 Unvaccinated for COVID-19; Z72.0 Tobacco use; Z91.148 Patient's other noncompliance with medication regimen for other reason
CPT/HCPCS: 36000; 36415; 80053; 80307; 81015; 82947; 83605; 85025; 85379; 87040; 87086; 96360; 96374; 99284; J1815; A9270-GY

== ENCOUNTER 2023-02-27 05:13 | Emergency (ER) | payer OTHER ==
[2023-02-27 05:20] VITALS: TEMP 96.5
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
[2023-02-27] MEDS ORDERED: PROTONIX 40 MG IV IV ONE (06:14)
[2023-02-27] MEDS ORDERED: TRANDATE 20 MG/4 ML SYRINGE IV ONE ×2 (06:14→10:12)
[2023-02-27] MEDS ORDERED: Zofran 4 MG/2 ML VIAL ONE (06:14)
[2023-02-27] MEDS: Sodium Chloride 0.9% 1000 ML 1,000 ML IV SCH (06:30)
[2023-02-27] MEDS: PROTONIX 40 MG IV IV ONE (06:33)
[2023-02-27] MEDS: Zofran 4 MG/2 ML VIAL IV ONE (06:34)
[2023-02-27] MEDS: TRANDATE 20 MG/4 ML SYRINGE IV ONE ×2 (06:35→10:14)
[2023-02-27 06:59] LABS: Appearance Clear (Clear); Bacteria None Seen /HPF (None Seen); Bilirubin Negative (Negative); Blood Small (Negative); Epithelial Cells None Seen /HPF (None Seen); Glucose, Urine >=1000 mg/dL (Negative); Hyaline Casts NONE SEEN /LPF (0-2); Ketones Negative (Negative); Leukocyte Esterase Negative (Negative); Nitrite Negative (Negative); Ph 7.5 (4.6-8.0); Protein,Urine Dip 300 (Negative); Urobilinogen 0.2 mg/dL (0.2); WBC 0-2 /HPF (0-5)
--- NOTE | 2023-02-27 07:10 | XRAY ---
CLINICAL HISTORY:Emesis; diarrhea COMPARISON:Previous study, dated 10/22/2021. TECHNIQUE:CT of the abdomen and pelvis was performed with axial images as well as sagittal and coronal reconstruction images without intravenous contrast. FINDINGS: The visualized lung bases appear unremarkable. The liver is normal in size, morphology, and position, with no intrahepatic or extrahepatic bile duct dilation. Surgical removed gallbladder. Unremarkable appearing pancreas. No pancreatic mass or ductal dilatation is seen. Calcification seen within the spleen is suggestive of old granuloma. Right adrenal gland fat-containing lesion measures about 2.3 X 2.2 cm, likely suggestive of adrenal adenoma, CT with adrenal protocol is recommended for further evaluation. Thickening of the left adrenal gland. The kidneys appear unremarkable with no stones, cyst masses or hydronephrosis. The ureters are normal with no stones. Unremarkable abdominal aorta without specific evidence of aneurysm or dissection. IVC is normal. There is the apparent mild thickening of the distal esophagus, which may be secondary to under-distension. If clinically indicated further evaluation is advised. Surgical clips seen within the stomach are likely due to previous bariatric surgery. Unremarkable appearing duodenum. Multiple colonic diverticuli. Small Bowel is non-distended with no abnormality No free air and no ascites. No free intraperitoneal air is seen. The bladder is unremarkable with no stones. The appendix is normal. Vertebral spondylitic changes. No abdominal wall pathology is seen. The prostate appears enlarged, to be correlated with an ultrasound of the bladder and prostate. IMPRESSION: There is an apparent mild thickening of the distal esophagus, which may be secondary to under-distension. If clinically indicated further evaluation is advised. Multiple colonic diverticuli without acute diverticulitis. The right adrenal gland fat-containing lesion measures about 2.3 X 2.2 cm, likely suggestive of adrenal adenoma, as seen on prior CT. CT with adrenal protocol is recommended for further evaluation. Prostatomegaly is to be correlated with an ultrasound of the bladder and prostate. No other significant changes in comparison with the previous study. Electronically Signed by: Marie Watts MD. (02/27/2023 06:10:01 [employer])
[2023-02-27 07:17] LABS: Absolute Neutrophil Ct (ANC) 10.17 x10^3/uL (1.4-6.9); BASOPHIL % 0.5 % (0.0-0.4); Basophil (Absolute #) 0.06 x10^3/uL (0-0.4); Eosinophil % 0.7 % (0.00-5.0); Eosinophil (Absolute #) 0.09 x10^3/uL (0-0.5); Hematocrit 39.6 % (42-50); Hemoglobin 13.6 g/dL (12.5-18.0); IMMATURE GRAN # 0.06 x10^3u/L (0.00-0.03); IMMATURE GRAN % 0.5 % (0.00-0.4); Lymphocyte (Absolute #) 1.43 x10^3/uL (1.0-4.6); Lymphocytes % 11.6 % (24.0-44.0); Mean Cell Volume 80.8 fL (78-100); Mean Corpuscular Hemoglobin 27.8 pg (26-32); Mean Corpuscular Hgb Concent. 34.3 g/dL (32-36); Mean Platelet Volume 10.8 fL (7.5-11.0); Monocytes % 4.1 % (0.0-12.0); Neutrophil % 82.6 % (36.0-66.0); Platelet Count 206 x10^3/uL (150-450); Red Cell Distribution Width 12.3 % (11.5-14.0); White Blood Count 12.3 x10^3/uL (4.0-10.5)
[2023-02-27 07:19] LABS: ADD URINE CULTURE? NO (NO)
[2023-02-27 07:26] LABS: Amphetamine,Urine NEGATIVE (NEGATIVE); Barbiturate,Urine NEGATIVE (NEGATIVE); Benzodiazepine,Urine NEGATIVE (NEGATIVE); Cocaine,Urine NEGATIVE (NEGATIVE); Methadone,Urine NEGATIVE (NEGATIVE); Opiate,Urine NEGATIVE (NEGATIVE); PCP,Urine NEGATIVE (NEGATIVE); THC,Urine NEGATIVE (NEGATIVE)
[2023-02-27 07:31] LABS: ALBUMIN 3.5 g/dL (3.5-5.0); ALKALINE PHOSPHATASE 176 U/L (38-126); AMYLASE 41 U/L (30-110); ANION GAP 11.6 MEQ/L (5-15); BLOOD UREA NITROGEN 24 mg/dL (9-20); CHLORIDE 99 mmol/L (98-107); Calcium 8.5 mg/dL (8.4-10.2); Carbon Dioxide 29 mmol/L (22-30); Creatinine 1 0.51 mg/dL (0.66-1.25); EST GLOMERULAR FILTRATION RATE > 60.0 ML/MIN; ETHYL ALCOHOL < 10 mg/dL (0-10); Glucose 402 mg/dL (74-106); LIPASE 65 U/L (23-300); MAGNESIUM 1.7 mg/dL (1.6-2.3); Potassium 3.8 mmol/L (3.5-5.1); SGOT/AST 23 U/L (17-59); SGPT/ALT 22 U/L (0-50); SODIUM 136 mmol/L (137-145); Total Protein 6.5 g/dL (6.3-8.2)
[2023-02-27 07:57] LABS: INFLUENZA A NEGATIVE (NEGATIVE); INFLUENZA B NEGATIVE (NEGATIVE); RESPIRATORY SYNCTIAL VIRUS NEGATIVE (NEGATIVE); SARS-CoV-2 Xpert Express NEGATIVE (NEGATIVE)
[2023-02-27] MEDS ORDERED: Ativan 2 MG/1 ML VIAL ONE (10:30)
[2023-02-27] MEDS: Ativan 2 MG/1 ML VIAL IV ONE (11:06)
[2023-02-27] MEDS: Amidate 20 MG/10 ML IV STA (11:27)
--- NOTE | 2023-02-27 11:27 | XRAY ---
Indication: Confusion. Multiple contiguous axial images obtained through the head without contrast. Comparison: October 21, 2021 Vertex slightly degraded by motion artifact. New acute intraventricular hemorrhage accumulating greatest in 3rd/4th ventricles and lesser degree occipital horns of both lateral ventricles. Largest hemorrhage seen fourth ventricle measuring at least 3.3 x 4.6 cm in greatest axial dimension. Subsequent hydrocephalus with prominent lateral ventricles up to 2 cm diameter each. No midline shifting. Elsewhere age-appropriate global atrophy with progressive worsening moderate periventricular degenerative micro-ischemia bilaterally. Bony calvarium intact. Visualized paranasal sinuses and mastoid air cells are clear. Impression: 1. Mild motion artifact. 2. New acute intraventricular hemorrhage with mild hydrocephalus as detailed. 3. Again atrophy and degenerative micro-ischemia. Comment: Telephone report was given to ordering clinician Dr. Vallejo at 1120 hrs. on February 27, 2023.
[2023-02-27] MEDS: Zemuron 100 MG/10 ML IV STA (11:28)
[2023-02-27] MEDS ORDERED: Propofol 1000 mg/100 ml Bottle 100 ML IV ONE (11:29)
[2023-02-27] MEDS ORDERED: SUBLIMAZE 100 MCG/2 ML ONE (11:33)
[2023-02-27] MEDS ORDERED: Propofol 1000 mg/100 ml Bottle 100 ML IV PRN (11:38)
[2023-02-27] MEDS ORDERED: FENTANYL 500 MCG/10 ML VIAL 1,500 MCG in Sodium Chloride 0.9% 150 ML 120 ML IV PRN (11:38)
[2023-02-27] MEDS: SUBLIMAZE 100 MCG/2 ML IV STA (11:53)
--- NOTE | 2023-02-27 11:57 | XRAY ---
Indication: NG and EG tube placement. Comparison: October 05, 2022 Portable chest demonstrates new endotracheal tube tip approximately 6 cm above jin and new NG tube traversing chest with tip in stomach. Remaining heart and lungs unremarkable. Bony thorax intact again with degenerative changes.
[2023-02-27 11:59] LABS: A-aADO2 141; ABG HEMOGLOBIN 13.9; ABG POTASSIUM 3.8 (3.5-5.1); ABG SITE RIGHT RADIAL; ALLEN TEST OK? YES; ARTERIAL BLD GAS O2 SATURATION 99.2 % (95-100); ARTERIAL BLOOD GAS BASE EXCESS 2.3 (-2.0-2.0); ARTERIAL BLOOD GAS FIO2 50 %; ARTERIAL BLOOD GAS PCO2 39 mmHg (35-45); ARTERIAL BLOOD GAS PO2 167 mmHg (75-100); ARTERIAL BLOOD GAS pH 7.44 (7.35-7.45); CARBOXYHEMOGLOBIN 1.7 % THgb (0.0-6.9); HCO3- 26.5 (22-28); HGB O2 SAT 96.5 g/dF (94-100); paO2 pAO1 0.54
[2023-02-27 12:37] VITALS: RESP 16
[2023-02-27] MEDS: CARDENE*** 25 MG in Sodium Chloride 0.9% 250 ML 240 ML IV PRN (12:44)
[2023-02-27 13:06] VITALS: BP 117/73; PULSE 80; O2SAT 96
[2023-02-27 13:27] LABS: A-aADO2 26; ABG HEMOGLOBIN 13.4; ABG POTASSIUM 3.8 (3.5-5.1); ABG SITE LEFT RADIAL; ALLEN TEST OK? YES; ARTERIAL BLD GAS O2 SATURATION 98.2 % (95-100); ARTERIAL BLD GAS TIDAL VOLUME 600 cc; ARTERIAL BLOOD GAS BASE EXCESS 2.1 (-2.0-2.0); ARTERIAL BLOOD GAS FIO2 21 %; ARTERIAL BLOOD GAS PCO2 35 mmHg (35-45); ARTERIAL BLOOD GAS PO2 80 mmHg (75-100); ARTERIAL BLOOD GAS pH 7.47 (7.35-7.45); CARBOXYHEMOGLOBIN 2.4 % THgb (0.0-6.9); HCO3- 25.5 (22-28); HGB O2 SAT 95.4 g/dF (94-100); Methhemoglobin 0.5 % (1.4-1.5); paO2 pAO1 0.75
[2023-02-28] MEDS ORDERED: Lantus Insulin SQ SCH (08:00)
== END 2023-02-27 13:39 | disposition short-term general hospital (02) ==
LOC: ED 05:13
DX: I61.5 Nontraumatic intracerebral hemorrhage, intraventricular (principal); R40.4 Transient alteration of awareness; E27.8 Other specified disorders of adrenal gland; K22.89 Other specified disease of esophagus; K57.90 Diverticulosis of intestine, part unspecified, without perforation or abscess without bleeding; N40.0 Benign prostatic hyperplasia without lower urinary tract symptoms; D72.829 Elevated white blood cell count, unspecified; R81 Glycosuria; R80.9 Proteinuria, unspecified; R31.29 Other microscopic hematuria; E86.0 Dehydration; E11.65 Type 2 diabetes mellitus with hyperglycemia; R11.10 Vomiting, unspecified; Z91.148 Patient's other noncompliance with medication regimen for other reason; K92.1 Melena; I16.0 Hypertensive urgency; I11.0 Hypertensive heart disease with heart failure; K92.2 Gastrointestinal hemorrhage, unspecified; R19.7 Diarrhea, unspecified; E78.5 Hyperlipidemia, unspecified; I50.9 Heart failure, unspecified; Z79.4 Long term (current) use of insulin; Z79.84 Long term (current) use of oral hypoglycemic drugs; Z79.899 Other long term (current) drug therapy; Z28.310 Unvaccinated for COVID-19; Z72.0 Tobacco use
CPT/HCPCS: 0241U; 31500; 36000; 36415; 36600; 51702; 70450; 71045; 74176; 80053; 80307; 81001; 82077; 82140; 82150; 82375; 82803; 82947; 83605; 83690; 83735; 83880; 84484; 85025; 93005; 94002; 94760; 94799; 96360; 96361; 96374; 96375; 96376; 99285; J2060; J2405; J2704; J3010